=== PATIENT | female | born 1980 | race Caucasian/White ===

== ENCOUNTER → 2019-09-18 | Outpatient (CLI) | payer OTHER, SELFPAY ==
[2019-09-08 13:54] VITALS: BMI 25.9
[2019-09-18 10:41] LABS: Absolute Lymphocyte Count 1.88 X10^3/uL (0.83-4.51); Basophil# 0.04 X10^3/uL; Basophil% 0.7 % (0-1); Eosinophils% 1.8 % (0-5); Hematocrit 42.5 % (37-47); Hemoglobin 14.1 g/dL (12.0-15.0); Lymphocyte # 1.88 X10^3/ul (4.0); Lymphocyte % 34.4 % (19-41); Mean Corp Hgb Conc 33.2 g/dL (32-36); Mean Corpuscular Hgb 27.6 pg (27.0-32.0); Mean Corpuscular Volume 83.3 fL (81-99); Mean Platelet Vol. 11.1 fl (6.2-12.0); Monocyte# 0.39 X10^3/uL; Monocyte% 7.1 % (0-10); NRBC Flagged by Analyzer 0 % (0-5); Neutrophil # 3.03 X10^3/uL (2.7-7.7); Neutrophil % 55.6 % (47-70); Platelet Count 250 K/mm3 (150-450); RBC Distribution Width CV 11.9 % (11.6-14.6); RBC Distribution Width SD 36.3 fl (35.1-43.9); White Blood Count 5.5 K/mm3 (4.4-11.0)
[2019-09-18 11:11] LABS: ALB/GLOB Ratio 1.2 RATIO (0.9-2.4); AST(SGOT) 11 U/L (15-37); Alanine Aminotransfer ALT/SGPT 16 U/L (13-56); Alkaline Phosphatase 53 U/L (45-117); Anion Gap 9 (5-15); BUN 12 mg/dL (7-18); BUN/Creat Ratio 16.1 RATIO (10-20); Calcium,Total 8.9 mg/dL (8.5-10.1); Chloride 104 mmol/L (98-107); Cholesterol 185 mg/dL (200); Creatinine, Serum 0.75 mg/dL (0.55-1.02); EST Glomerular Filtration Rate 91 mL/min (>60); Est Glom Filt Rate - Afr Amer 110 mL/min (>60); Globulin 3.4 g/dL (2.2-4.2); Glucose 80 mg/dL (74-106); High Density Lipoprotein 53 mg/dL; Potassium 3.8 mmol/L (3.5-5.1); Protein, Total 7.4 g/dL (6.4-8.2); Sodium Level 139 mmol/L (136-145); Thyroid Stim Hormone (TSH) 1.68 uIU/mL (0.358-3.74); Triglycerides 76 mg/dL; Very Low Density Lipoprotein 15 mg/dL (5-40)
== END | disposition home or self-care (01) ==
PROVIDERS: Family Provider Family Medicine; PCP Family Medicine; Referring Provider Obstetrics & Gynecology; Visit Provider Obstetrics & Gynecology
DX: Z13.29 Encounter for screening for other suspected endocrine disorder (principal); Z13.220 Encounter for screening for lipoid disorders
CPT/HCPCS: 80053; 80061; 84443; 85025

== ENCOUNTER → 2019-10-01 | Outpatient (CLI) | payer OTHER, SELFPAY ==
[2019-09-08 13:54] VITALS: BMI 25.9
--- NOTE | 2019-10-01 10:37 | BI_ITS ---
MAMMOGRAPHY - BILATERAL SCREENING REASON FOR EXAM: Female, 39 years old. Routine annual screening examination. PERTINENT HISTORY: Non-contributory. TECHNIQUE: Digital bilateral breast rita (3D mammographic acquisition) in the CC and MLO projections. 2-D mediolateral oblique (MLO) and craniocaudad (CC) views of both breasts were obtained. CAD: Full Field Digital Mammography with Computer Added Detection was performed. COMPARISON: None. Baseline examination. FINDINGS: Breast Composition: The breasts are extremely dense, which lowers the sensitivity of mammography. There are no dominant masses or suspicious calcifications. No other significant abnormalities are identified. BI/SCREEN MAMM (CAD) W/RITA BILAT IMPRESSION: Negative screening mammogram. Yearly followup mammogram recommended. (A) ASSESSMENT CATEGORY: BIRADS Category 1: Negative. A letter regarding these results will be sent to the patient by the facility within 30 days. Approximately 10% of breast cancers are not detected by mammography. A normal mammogram should not delay biopsy of a clinically suspicious abnormality. [id number] Electronically Signed: Eduin Solo, at 12:48 EST , Service support ,
== END | disposition home or self-care (01) ==
LOC: OPBI 10:36
PROVIDERS: Family Provider Family Medicine; PCP Family Medicine; Referring Provider Obstetrics & Gynecology; Visit Provider Obstetrics & Gynecology
DX: Z12.31 Encounter for screening mammogram for malignant neoplasm of breast (principal)
CPT/HCPCS: 77063; 77067

== ENCOUNTER → 2020-09-15 | Outpatient (CLI) | payer OTHER, SELFPAY ==
[2020-09-15 09:44] VITALS: BMI 27.0
[2020-09-21 14:04] LABS: HPV APTIMA, High Risk Negative (Negative)
== END | disposition home or self-care (01) ==
LOC: LABSPEC 16:18
PROVIDERS: PCP Family Medicine; Referring Provider Obstetrics & Gynecology; Visit Provider Obstetrics & Gynecology
DX: Z12.4 Encounter for screening for malignant neoplasm of cervix (principal)
CPT/HCPCS: 87624; 88175; G0145

== ENCOUNTER → 2020-10-10 12:38 | Outpatient (CLI) | payer OTHER, SELFPAY ==
[2020-09-15 09:44] VITALS: BMI 27.0
--- NOTE | 2020-10-10 12:51 | BI_ITS ---
MAMMOGRAPHY - BILATERAL SCREENING REASON FOR EXAM: Female, 40 years old. Routine annual screening examination. PERTINENT HISTORY: Screening TECHNIQUE: Digital bilateral breast rita (3D mammographic acquisition) in the CC and MLO projections. 2-D mediolateral oblique (MLO) and craniocaudad (CC) views of both breasts were obtained. CAD: Full Field Digital Mammography with Computer Added Detection was performed. COMPARISON: 10/01/2019 FINDINGS: Breast Composition: Dense There are no dominant masses or suspicious calcifications. No other significant abnormalities are identified. BI/SCREEN MAMM (CAD) W/RITA BILAT IMPRESSION: Stable bilateral screening mammogram. Yearly follow-up mammogram recommended. (A) ASSESSMENT CATEGORY: BIRADS Category 1: Negative. A letter regarding these results will be sent to the patient by the facility within 30 days. Approximately 10% of breast cancers are not detected by mammography. A normal mammogram should not delay biopsy of a clinically suspicious abnormality. [id number] Electronically Signed: Harshal Josue, at 17:13 EST Tel , Service support ,
== END ==
PROVIDERS: PCP Family Medicine; Referring Provider Obstetrics & Gynecology; Visit Provider Obstetrics & Gynecology
DX: Z12.31 Encounter for screening mammogram for malignant neoplasm of breast (principal)
CPT/HCPCS: 77063; 77067

== ENCOUNTER 2021-11-28 09:08 | Outpatient (CLI) | payer OTHER, SELFPAY ==
--- NOTE | 2021-11-28 09:12 | BI_ITS ---
MAMMOGRAPHY - BILATERAL SCREENING REASON FOR EXAM: Female, 41 years old. Routine annual screening examination. PERTINENT HISTORY: Non-contributory. TECHNIQUE: Digital bilateral breast rita (3D mammographic acquisition) in the CC and MLO projections. 2-D mediolateral oblique (MLO) and craniocaudad (CC) views of both breasts were obtained. CAD: Full Field Digital Mammography with Computer Added Detection was performed. COMPARISON: Comparison is made with prior study dated 10/10/2020. FINDINGS: Breast Composition: The breasts are extremely dense, which lowers the sensitivity of mammography. There are no dominant masses or suspicious calcifications. Stable small benign-appearing bilateral axillary lymph nodes. No other significant abnormalities are identified. There has been no significant change since the prior study. BI/SCRN MAMM (CAD)W/RITA BILAT IMPRESSION: Stable bilateral screening mammogram. Yearly follow-up mammogram recommended. (A) ASSESSMENT CATEGORY: BIRADS Category 2: Benign. A letter regarding these results will be sent to the patient by the facility within 30 days. Approximately 10% of breast cancers are not detected by mammography. A normal mammogram should not delay biopsy of a clinically suspicious abnormality. [id number] Electronically Signed: Eduin Solo MD at 10:10 EST , Service support ,
[2021-11-28 10:42] LABS: Vitamin D,25 Hydroxy 32.8 ng/mL
[2021-11-28 10:49] LABS: Cholesterol 206 mg/dL (200); Glucose 94 mg/dL (74-106); High Density Lipoprotein 60 mg/dL; Thyroid Stim Hormone (TSH) 2.48 uIU/mL (0.358-3.74); Triglycerides 84 mg/dL; Very Low Density Lipoprotein 17 mg/dL (5-40)
== END 2021-11-28 23:59 | disposition short-term general hospital (02) ==
PROVIDERS: PCP Family Medicine; Referring Provider Obstetrics & Gynecology; Visit Provider Obstetrics & Gynecology
DX: Z12.31 Encounter for screening mammogram for malignant neoplasm of breast (principal); Z13.1 Encounter for screening for diabetes mellitus; Z13.220 Encounter for screening for lipoid disorders; Z13.29 Encounter for screening for other suspected endocrine disorder; Z13.21 Encounter for screening for nutritional disorder
CPT/HCPCS: 36415; 77063; 77067; 80061; 82306; 82947; 84443

== ENCOUNTER → 2022-09-13 | Outpatient (CLI) | payer OTHER, SELFPAY ==
[2022-09-13 10:19] LABS: Erythrocyte Sedimentation Rate 9 mm/hr (0-30)
[2022-09-13 10:26] LABS: Absolute Lymphocyte Count 1.85 X10^3/uL (0.83-4.51); Absolute Neutrophil Count 4.3 X10^3/uL (2.0-7.7); Basophil# 0.06 X10^3/uL; Basophil% 0.9 % (0-1); Eosinophils% 1.5 % (0-5); Lymphocyte # 1.85 X10^3/ul (0.83-4.51); Lymphocyte % 27.3 % (19-41); Mean Corp Hgb Conc 34.1 g/dL (32-36); Mean Corpuscular Hgb 27.9 pg (27.0-32.0); Mean Corpuscular Volume 81.7 fL (81-99); Mean Platelet Vol. 11.1 fl (6.2-12.0); Monocyte# 0.45 X10^3/uL; Monocyte% 6.6 % (0-10); NRBC Flagged by Analyzer 0 % (0-5); Neutrophil # 4.29 X10^3/uL (2.7-7.7); Neutrophil % 63.4 % (47-70); Platelet Count 278 K/mm3 (150-450); RBC Distribution Width CV 12.3 % (11.6-14.6); RBC Distribution Width SD 36.2 fl (35.1-43.9); Red Blood Count 5.02 M/mm3 (4.2-5.4); White Blood Count 6.8 K/mm3 (4.4-11.0)
[2022-09-13 10:47] LABS: Fibrinogen 357 mg/dl (203-444)
[2022-09-13 11:28] LABS: Vitamin D,25 Hydroxy 33.2 ng/mL
[2022-09-13 11:34] LABS: Hemoglobin A1c 5.2 % (3.8-5.6)
[2022-09-13 11:48] LABS: Homocysteine 6.9 umol/L (3.2-10.7)
[2022-09-13 12:00] LABS: ALB/GLOB Ratio 1.1 RATIO (0.9-2.4); AST(SGOT) 10 U/L (15-37); Alanine Aminotransfer ALT/SGPT 18 U/L (13-56); Albumin, Serum 4.1 g/dL (3.2-5.0); Alkaline Phosphatase 53 U/L (45-117); Anion Gap 5 (5-15); BUN 13 mg/dL (7-18); CRP, High Sensitivity Cardiac 1.38 mg/L; Calcium,Total 9.5 mg/dL (8.5-10.1); Chloride 106 mmol/L (98-107); Cholesterol 221 mg/dL (200); Creatinine, Serum 0.86 mg/dL (0.55-1.02); EST Glomerular Filtration Rate 76 mL/min (>60); Est Glom Filt Rate - Afr Amer 92 mL/min (>60); Ferritin 48 ng/mL (8-252); Free T3 2.6 pg/mL (2.18-3.98); GGTP 13 U/L (5-55); Globulin 3.6 g/dL (2.2-4.2); Glucose 85 mg/dL (74-106); High Density Lipoprotein 61 mg/dL; Iron 105 ug/dL (50-170); Iron Binding Capacity,Total 372 ug/dL (250-450); LDH 148 U/L (84-246); PERCENT IRON SATURATION 28.2 % (15.0-55.0); Potassium 3.6 mmol/L (3.5-5.1); Protein, Total 7.7 g/dL (6.4-8.2); Sodium Level 136 mmol/L (136-145); T3 Uptake 32 % (30-39); T4 Free Direct 0.93 ng/dL (0.76-1.46); T4 Total, Thyroxin 10.3 ug/dL (4.8-13.9); T7 / Free Thyroxin Index 3.3 (1.4-4.5); Thyroid Stim Hormone (TSH) 2.88 uIU/mL (0.358-3.74); Triglycerides 107 mg/dL; Uric Acid 2.7 mg/dL (2.6-6.0); Very Low Density Lipoprotein 21 mg/dL (5-40)
[2022-09-21 04:07] LABS: Alkaline Phosphatase, Serum 58 IU/L (44-121); Bone Fraction 47 % (14-68); Ceruloplasmin 32.7 mg/dL (19.0-39.0); Insulin Like Growth Factor 173 ng/mL (74-239); Intestinal Fraction 0 % (0-18); LDH 150 IU/L (119-226); LDH Fraction 1 19 % (17-32); LDH Fraction 2 37 % (25-40); LDH Fraction 3 26 % (17-27); LDH Fraction 4 10 % (5-13); LDH Fraction 5 8 % (4-20); Liver Fraction 53 % (18-85); Thyroid Peroxidase AB 9 IU/mL (0-34)
[2022-09-22 21:03] LABS: Copper, Serum or Plasma 144 ug/dL (80-158); Thyroglobulin Antibody < 1.0 IU/mL (0.0-0.9)
== END | disposition home or self-care (01) ==
DX: E61.9 Deficiency of nutrient element, unspecified (principal); Z13.9 Encounter for screening, unspecified; Z13.220 Encounter for screening for lipoid disorders
CPT/HCPCS: 36415; 80053; 80061; 82306; 82390; 82525; 82533; 82728; 82977; 83036; 83090; 83525; 83540; 83550; 83615; 83625; 84075; 84080; 84305; 84436; 84439; 84443; 84479; 84481; 84482; 84550; 85025; 85384; 85652; 86141; 86376; 86800

== ENCOUNTER → 2022-12-07 | Outpatient (CLI) | payer OTHER, SELFPAY ==
--- NOTE | 2022-12-07 08:31 | BI_ITS ---
MAMMOGRAPHY - BILATERAL SCREENING REASON FOR EXAM: Female, 42 years old. Routine annual screening examination. PERTINENT HISTORY: Non-contributory. TECHNIQUE: Digital bilateral breast rita (3D mammographic acquisition) in the CC and MLO projections. 2-D mediolateral oblique (MLO) and craniocaudad (CC) views of both breasts were obtained. CAD: Full Field Digital Mammography with Computer Added Detection was performed. COMPARISON: Comparison is made with prior study dated 11/28/2021 and 10/10/2020. FINDINGS: Breast Composition: The breasts are extremely dense, which lowers the sensitivity of mammography. There are no dominant masses or suspicious calcifications. Stable small benign-appearing bilateral axillary lymph nodes. No other significant abnormalities are identified. There has been no significant change since the prior study. BI/SCRN MAMM (CAD)W/RITA BILAT IMPRESSION: Stable bilateral screening mammogram. Yearly follow-up mammogram recommended. (A) ASSESSMENT CATEGORY: BIRADS Category 2: Benign. A letter regarding these results will be sent to the patient by the facility within 30 days. Approximately 10% of breast cancers are not detected by mammography. A normal mammogram should not delay biopsy of a clinically suspicious abnormality. [id number] Electronically Signed: Eduin Solo MD at 9:11 EST ,
== END | disposition home or self-care (01) ==
LOC: OPBI 08:30
PROVIDERS: Visit Provider Obstetrics & Gynecology
DX: Z12.31 Encounter for screening mammogram for malignant neoplasm of breast (principal)
CPT/HCPCS: 77063; 77067

== ENCOUNTER → 2023-01-03 | Outpatient (CLI) | payer OTHER, SELFPAY ==
[2023-01-03 10:21] LABS: Fibrinogen 271 mg/dl (203-444)
[2023-01-03 10:33] LABS: Erythrocyte Sedimentation Rate 5 mm/hr (0-30)
[2023-01-03 10:35] LABS: Absolute Lymphocyte Count 1.69 X10^3/uL (0.83-4.51); Absolute Neutrophil Count 3.2 X10^3/uL (2.0-7.7); Basophil# 0.04 X10^3/uL; Basophil% 0.7 % (0-1); Eosinophil# 0.15 X10^3/uL; Eosinophils% 2.8 % (0-5); Hematocrit 42.1 % (37-47); Hemoglobin 13.6 g/dL (12.0-15.0); Lymphocyte # 1.69 X10^3/ul (0.83-4.51); Lymphocyte % 31.5 % (19-41); Mean Corp Hgb Conc 32.3 g/dL (32-36); Mean Corpuscular Hgb 26.5 pg (27.0-32.0); Mean Corpuscular Volume 81.9 fL (81-99); Mean Platelet Vol. 10.6 fl (6.2-12.0); Monocyte% 5.6 % (0-10); NRBC Flagged by Analyzer 0 % (0-5); Neutrophil # 3.15 X10^3/uL (2.7-7.7); Neutrophil % 58.8 % (47-70); Platelet Count 302 K/mm3 (150-450); RBC Distribution Width CV 12.7 % (11.6-14.6); RBC Distribution Width SD 37.9 fl (35.1-43.9); Red Blood Count 5.14 M/mm3 (4.2-5.4); White Blood Count 5.4 K/mm3 (4.4-11.0)
[2023-01-03 10:42] LABS: AST(SGOT) 12 U/L (15-37); Alanine Aminotransfer ALT/SGPT 21 U/L (13-56); Albumin, Serum 3.8 g/dL (3.2-5.0); Alkaline Phosphatase 60 U/L (45-117); Anion Gap 7 (5-15); BUN 20 mg/dL (7-18); BUN/Creat Ratio 23.2 RATIO (10-20); CRP, High Sensitivity Cardiac 1.22 mg/L; Calcium,Total 9.4 mg/dL (8.5-10.1); Chloride 104 mmol/L (98-107); Creatinine, Serum 0.86 mg/dL (0.55-1.02); EST Glomerular Filtration Rate 76 mL/min (>60); Est Glom Filt Rate - Afr Amer 92 mL/min (>60); Free T3 2.7 pg/mL (2.18-3.98); Globulin 3.7 g/dL (2.2-4.2); Glucose 95 mg/dL (74-106); LDH 156 U/L (84-246); Potassium 3.9 mmol/L (3.5-5.1); Protein, Total 7.5 g/dL (6.4-8.2); Sodium Level 137 mmol/L (136-145); T3 Uptake 33 % (30-39); T4 Free Direct 0.97 ng/dL (0.76-1.46); T4 Total, Thyroxin 8.7 ug/dL (4.8-13.9); T7 / Free Thyroxin Index 2.9 (1.4-4.5); Thyroid Stim Hormone (TSH) 2.04 uIU/mL (0.358-3.74)
[2023-01-03 10:50] LABS: Vitamin D,25 Hydroxy 63.6 ng/mL
[2023-01-12 20:07] LABS: Alkaline Phosphatase, Serum 61 IU/L (44-121); Bone Fraction 54 % (14-68); Insulin Like Growth Factor 137 ng/mL (74-239); Intestinal Fraction 6 % (0-18); Liver Fraction 41 % (18-85); Thyroid Peroxidase AB < 9 IU/mL (0-34)
[2023-01-13 09:17] LABS: Copper, Serum or Plasma 120 ug/dL (80-158); T3 Reverse 16.8 ng/dL (9.2-24.1); Thyroglobulin Antibody < 1.0 IU/mL (0.0-0.9)
== END | disposition home or self-care (01) ==
LOC: MTLAB 08:30
DX: E03.9 Hypothyroidism, unspecified (principal); E61.9 Deficiency of nutrient element, unspecified; E55.9 Vitamin D deficiency, unspecified; R76.0 Raised antibody titer; R63.5 Abnormal weight gain
CPT/HCPCS: 36415; 80053; 82306; 82390; 82525; 83615; 84075; 84080; 84305; 84436; 84439; 84443; 84479; 84481; 84482; 85025; 85384; 85652; 86141; 86376; 86800

== ENCOUNTER → 2023-04-25 | Outpatient (CLI) | payer OTHER, SELFPAY ==
[2023-04-25 10:20] LABS: Absolute Lymphocyte Count 1.83 X10^3/uL (0.83-4.51); Absolute Neutrophil Count 3.5 X10^3/uL (2.0-7.7); Basophil# 0.03 X10^3/uL; Basophil% 0.5 % (0-1); Eosinophil# 0.13 X10^3/uL; Eosinophils% 2.1 % (0-5); Hematocrit 41.4 % (37-47); Hemoglobin 13.6 g/dL (12.0-15.0); Lymphocyte # 1.83 X10^3/ul (0.83-4.51); Lymphocyte % 30.2 % (19-41); Mean Corp Hgb Conc 32.9 g/dL (32-36); Mean Corpuscular Hgb 27.1 pg (27.0-32.0); Mean Corpuscular Volume 82.5 fL (81-99); Mean Platelet Vol. 10.8 fl (6.2-12.0); Monocyte# 0.52 X10^3/uL; Monocyte% 8.6 % (0-10); NRBC Flagged by Analyzer 0 % (0-5); Neutrophil # 3.52 X10^3/uL (2.7-7.7); Neutrophil % 58.3 % (47-70); Platelet Count 276 K/mm3 (150-450); RBC Distribution Width CV 12.4 % (11.6-14.6); RBC Distribution Width SD 37.1 fl (35.1-43.9); Red Blood Count 5.02 M/mm3 (4.2-5.4); White Blood Count 6.1 K/mm3 (4.4-11.0)
[2023-04-25 10:27] LABS: Erythrocyte Sedimentation Rate 7 mm/hr (0-30)
[2023-04-25 10:33] LABS: Hemoglobin A1c 5.1 % (3.8-5.6)
[2023-04-25 10:37] LABS: Homocysteine 3.8 umol/L (3.2-10.7)
[2023-04-25 11:05] LABS: ALB/GLOB Ratio 1.1 RATIO (0.9-2.4); AST(SGOT) 15 U/L (15-37); Alanine Aminotransfer ALT/SGPT 22 U/L (13-56); Albumin, Serum 3.7 g/dL (3.2-5.0); Alkaline Phosphatase 57 U/L (45-117); Anion Gap 3 (5-15); BUN 13 mg/dL (7-18); BUN/Creat Ratio 16.8 RATIO (10-20); CRP, High Sensitivity Cardiac 1.52 mg/L; Calcium,Total 8.9 mg/dL (8.5-10.1); Chloride 110 mmol/L (98-107); Creatinine, Serum 0.77 mg/dL (0.55-1.02); EST Glomerular Filtration Rate 86 mL/min (>60); Est Glom Filt Rate - Afr Amer 104 mL/min (>60); Ferritin 18 ng/mL (8-252); Free T3 2.4 pg/mL (2.18-3.98); GGTP 10 U/L (5-55); Globulin 3.4 g/dL (2.2-4.2); Glucose 92 mg/dL (74-106); LDH 143 U/L (84-246); Potassium 3.8 mmol/L (3.5-5.1); Protein, Total 7.1 g/dL (6.4-8.2); Sodium Level 136 mmol/L (136-145); T3 Uptake 33 % (30-39); T4 Free Direct 0.92 ng/dL (0.76-1.46); T4 Total, Thyroxin 8.4 ug/dL (4.8-13.9); T7 / Free Thyroxin Index 2.8 (1.4-4.5); Thyroid Stim Hormone (TSH) 3.33 uIU/mL (0.358-3.74); Uric Acid 3.3 mg/dL (2.6-6.0)
[2023-04-25 11:35] LABS: Vitamin D,25 Hydroxy 92.9 ng/mL
[2023-04-29 19:07] LABS: Ceruloplasmin 28.7 mg/dL (19.0-39.0); Copper, Serum or Plasma 134 ug/dL (80-158); Insulin Like Growth Factor 140 ng/mL (74-239); Thyroglobulin Antibody < 1.0 IU/mL (0.0-0.9); Thyroid Peroxidase AB < 9 IU/mL (0-34)
== END | disposition home or self-care (01) ==
LOC: MTLAB 08:16
DX: Z13.29 Encounter for screening for other suspected endocrine disorder (principal); E61.9 Deficiency of nutrient element, unspecified; Z13.220 Encounter for screening for lipoid disorders; E03.9 Hypothyroidism, unspecified; E55.9 Vitamin D deficiency, unspecified; R76.0 Raised antibody titer; R63.5 Abnormal weight gain
CPT/HCPCS: 36415; 80053; 82306; 82390; 82525; 82728; 82977; 83036; 83090; 83615; 84305; 84436; 84439; 84443; 84479; 84481; 84482; 84550; 85025; 85652; 86141; 86376; 86800

== ENCOUNTER → 2023-07-10 | Outpatient (CLI) | payer OTHER, SELFPAY ==
--- NOTE | 2023-07-10 10:23 | US_ITS ---
INDICATION: left pelvic pain EXAMINATION: Ultrasound US Pelvis Non OB Complete With Transvaginal Imaging TECHNIQUE: Transabdominal and transvaginal pelvic ultrasound was performed. Grayscale, spectral waveform, and color flow Doppler evaluation of the adnexa. COMPARISON: None. FINDINGS: UTERUS: Anteverted. The uterus measures 12 x 6 x 5.7 cm. There is no uterine mass. The endometrial stripe measures 18 mm in AP diameter which is within normal limits. RIGHT OVARY: Measures 2.5 x 2.5 x 2.1 cm. Non-enlarged, normal echogenicity. There is normal arterial inflow and venous outflow present in the right ovary. LEFT OVARY: Measures 1.4 x 1.6 x 1 cm. Non-enlarged, normal echogenicity. There is normal arterial inflow and venous outflow present in the left ovary. FREE FLUID: None. US/Pelvic (Non ) IMPRESSION: Normal pelvic ultrasound. Electronically Signed: Pierce Pierce MD at 16:29 EDT ,
== END | disposition home or self-care (01) ==
LOC: US 10:22
PROVIDERS: PCP Internal Medicine; Referring Provider Nurse Practitioner Women's Health; Visit Provider Nurse Practitioner Women's Health
DX: R10.2 Pelvic and perineal pain (principal)
CPT/HCPCS: 76830; 76856; 93976

== ENCOUNTER → 2023-07-19 | Outpatient (CLI) | payer OTHER, SELFPAY ==
[2023-07-19 10:06] LABS: Absolute Neutrophil Count 3.7 X10^3/uL (2.0-7.7); Basophil# 0.06 X10^3/uL; Eosinophil# 0.14 X10^3/uL; Eosinophils% 2.3 % (0-5); Hematocrit 43.5 % (37-47); Hemoglobin 14.2 g/dL (12.0-15.0); Lymphocyte % 28.2 % (19-41); Mean Corp Hgb Conc 32.6 g/dL (32-36); Mean Corpuscular Hgb 27.2 pg (27.0-32.0); Mean Corpuscular Volume 83.2 fL (81-99); Mean Platelet Vol. 10.4 fl (6.2-12.0); Monocyte% 6.6 % (0-10); NRBC Flagged by Analyzer 0 % (0-5); Neutrophil # 3.71 X10^3/uL (2.7-7.7); Neutrophil % 61.7 % (47-70); Platelet Count 316 K/mm3 (150-450); RBC Distribution Width CV 12.5 % (11.6-14.6); Red Blood Count 5.23 M/mm3 (4.2-5.4)
[2023-07-19 10:57] LABS: Homocysteine 5.7 umol/L (3.2-10.7)
[2023-07-19 11:09] LABS: ALB/GLOB Ratio 1.1 RATIO (0.9-2.4); AST(SGOT) 18 U/L (15-37); Alanine Aminotransfer ALT/SGPT 23 U/L (13-56); Albumin, Serum 3.9 g/dL (3.2-5.0); Alkaline Phosphatase 59 U/L (45-117); Anion Gap 6 (5-15); BUN 11 mg/dL (7-18); BUN/Creat Ratio 13.7 RATIO (10-20); CRP < 2.90 mg/L (0.0-3.0); Calcium,Total 9.1 mg/dL (8.5-10.1); Chloride 108 mmol/L (98-107); Cholesterol 218 mg/dL (200); EST Glomerular Filtration Rate 82 mL/min (>60); Est Glom Filt Rate - Afr Amer 99 mL/min (>60); Ferritin 28 ng/mL (8-252); Free T3 2.8 pg/mL (2.18-3.98); GGTP 10 U/L (5-55); Globulin 3.7 g/dL (2.2-4.2); Glucose 96 mg/dL (74-106); High Density Lipoprotein 55 mg/dL; Protein, Total 7.6 g/dL (6.4-8.2); Sodium Level 138 mmol/L (136-145); T4 Free Direct 1.02 ng/dL (0.76-1.46); T4 Total, Thyroxin 9.6 ug/dL (4.8-13.9); Thyroid Stim Hormone (TSH) 3.66 uIU/mL (0.358-3.74); Triglycerides 111 mg/dL; Very Low Density Lipoprotein 22 mg/dL (5-40)
[2023-07-29 16:09] LABS: Ceruloplasmin 31.9 mg/dL (19.0-39.0); Copper, Serum or Plasma 144 ug/dL (80-158); Insulin Like Growth Factor 134 ng/mL (74-239)
== END | disposition home or self-care (01) ==
LOC: MTLAB 08:18
PROVIDERS: PCP Internal Medicine
DX: E56.9 Vitamin deficiency, unspecified (principal); E61.9 Deficiency of nutrient element, unspecified; E03.9 Hypothyroidism, unspecified; R79.0 Abnormal level of blood mineral; R79.82 Elevated C-reactive protein (CRP)
CPT/HCPCS: 36415; 80053; 80061; 82390; 82525; 82728; 82977; 83090; 84305; 84436; 84439; 84443; 84481; 85025; 86140

== ENCOUNTER → 2023-10-30 | Outpatient (CLI) | payer OTHER, SELFPAY ==
[2023-10-30 10:22] LABS: Absolute Lymphocyte Count 2.02 X10^3/uL (0.83-4.51); Absolute Neutrophil Count 4.4 X10^3/uL (2.0-7.7); Basophil# 0.05 X10^3/uL; Basophil% 0.7 % (0-1); Eosinophil# 0.17 X10^3/uL; Eosinophils% 2.4 % (0-5); Hematocrit 41.9 % (37-47); Hemoglobin 13.6 g/dL (12.0-15.0); Lymphocyte # 2.02 X10^3/ul (0.83-4.51); Lymphocyte % 28.3 % (19-41); Mean Corp Hgb Conc 32.5 g/dL (32-36); Mean Corpuscular Hgb 26.7 pg (27.0-32.0); Mean Corpuscular Volume 82.2 fL (81-99); Mean Platelet Vol. 10.7 fl (6.2-12.0); Monocyte# 0.45 X10^3/uL; Monocyte% 6.3 % (0-10); NRBC Flagged by Analyzer 0 % (0-5); Neutrophil # 4.44 X10^3/uL (2.7-7.7); Platelet Count 288 K/mm3 (150-450); RBC Distribution Width CV 12.5 % (11.6-14.6); RBC Distribution Width SD 37.5 fl (35.1-43.9); White Blood Count 7.2 K/mm3 (4.4-11.0)
[2023-10-30 10:29] LABS: Erythrocyte Sedimentation Rate 14 mm/hr (0-30)
[2023-10-30 10:54] LABS: Vitamin D,25 Hydroxy 61.7 ng/mL
[2023-10-30 11:35] LABS: Homocysteine 4.9 umol/L (3.2-10.7)
[2023-10-30 12:07] LABS: AST(SGOT) 15 U/L (15-37); Alanine Aminotransfer ALT/SGPT 27 U/L (13-56); Albumin, Serum 3.8 g/dL (3.2-5.0); Alkaline Phosphatase 67 U/L (45-117); Anion Gap 8 (5-15); BUN 11 mg/dL (7-18); CRP, High Sensitivity Cardiac 1.46 mg/L; Chloride 108 mmol/L (98-107); Creatinine, Serum 0.84 mg/dL (0.55-1.02); EST Glomerular Filtration Rate 78 mL/min (>60); Est Glom Filt Rate - Afr Amer 94 mL/min (>60); Ferritin 29 ng/mL (8-252); Free T3 2.7 pg/mL (2.18-3.98); Globulin 3.7 g/dL (2.2-4.2); Glucose 88 mg/dL (74-106); Iron 142 ug/dL (50-170); Iron Binding Capacity,Total 367 ug/dL (250-450); LDH 165 U/L (84-246); PERCENT IRON SATURATION 38.7 % (15.0-55.0); Potassium 3.8 mmol/L (3.5-5.1); Protein, Total 7.5 g/dL (6.4-8.2); Sodium Level 137 mmol/L (136-145); T4 Free Direct 0.99 ng/dL (0.76-1.46); T4 Total, Thyroxin 8.9 ug/dL (4.8-13.9); Thyroid Stim Hormone (TSH) 3.06 uIU/mL (0.358-3.74); Uric Acid 2.8 mg/dL (2.6-6.0)
[2023-10-30 14:51] LABS: Hemoglobin A1c 5.1 % (3.8-5.6)
[2023-11-07 03:07] LABS: Ceruloplasmin 32.9 mg/dL (19.0-39.0); Copper, Serum or Plasma 142 ug/dL (80-158)
== END | disposition home or self-care (01) ==
LOC: MTLAB 08:39
PROVIDERS: PCP Internal Medicine
DX: L65.9 Nonscarring hair loss, unspecified (principal); E56.9 Vitamin deficiency, unspecified; E61.9 Deficiency of nutrient element, unspecified; E03.9 Hypothyroidism, unspecified; R79.82 Elevated C-reactive protein (CRP)
CPT/HCPCS: 36415; 80053; 82306; 82390; 82525; 82728; 83036; 83090; 83540; 83550; 83615; 84436; 84439; 84443; 84481; 84482; 84550; 85025; 85652; 86141

== ENCOUNTER → 2023-12-09 | Outpatient (CLI) | payer OTHER, SELFPAY ==
--- NOTE | 2023-12-09 10:55 | BI_ITS ---
MAMMOGRAPHY - BILATERAL SCREENING REASON FOR EXAM: Female, 43 years old. Routine annual screening examination. PERTINENT HISTORY: Non-contributory. TECHNIQUE: Digital bilateral breast rita (3D mammographic acquisition) in the CC and MLO projections. 2-D mediolateral oblique (MLO) and craniocaudad (CC) views of both breasts were obtained. CAD: Full Field Digital Mammography with Computer Added Detection was performed. COMPARISON: Comparison is made with prior study dated December 07, 2022 and November 28, 2021. FINDINGS: Breast Composition: The breasts are extremely dense, which lowers the sensitivity of mammography. There is a 1.6 cm x 1.8 cm well-defined nodule in the deep upper lateral aspect of the left breast. Correlation with ultrasound is recommended. No other significant abnormalities are identified. BI/SCRN MAMM (CAD)W/RITA BILAT IMPRESSION: 1.6 x 1.8 cm well-defined nodule in the deep upper lateral aspect the left breast. Correlation with ultrasound is recommended. ASSESSMENT CATEGORY: BIRADS Category 0: Incomplete. Need additional imaging evaluation. A letter regarding these results will be sent to the patient by the facility within 30 days. Approximately 10% of breast cancers are not detected by mammography. A normal mammogram should not delay biopsy of a clinically suspicious abnormality. [id number] Electronically Signed: Eduin Solo MD at 14:58 EST ,
--- OUTSIDE RECORDS SUMMARY | 2023-12-09 12:25 | XMS RPT_ITS | CCD ---
Author Name Unknown Address [id number] [place] [address] Organization [facility] Care Team Providers Care Cover Inspector Name Role Phone Francy Doherty Unavailable Unavailable Francy Doherty Unavailable Unavailable Conrad Cisneros MD Primary Care Provider Conrad Cisneros MD Primary Care Provider AMIE NORRIS Attending Unavailable CONRAD CISNEROS Primary Care Unavailable CONRAD CISNEROS Primary Care Unavailable CONRAD CISNEROS Attending Unavailable Allergies Allergy Classification Reported Allergen(s) Allergy Type Date of Onset Reaction(s) Facility (4 sources) terconazole; Translations: [TERCONAZOLE] Drug Allergy 06-10-2008 [facility] Work Phone: Medications Completed/Discontinued Medications Medication Drug Class(es) Dates Sig (Normalized) Sig (Original) amoxicillin 875 mg oral tablet (2 sources) Penicillin-class Antibacterial Start: 03-08-2010 End: 03-18-2010 AMOXICILLIN 875 MG TABS one tab twice daily for 10 days AMOXICILLIN [id number] Portia High CNP B COMPLEX VITAMINS (2 sources) Start: 08-22-2017 B COMPLEX VITAMINS CAPS B COMPLEX VITAMINS [id number] Adrienne Cardenas MD Cholecalciferol (2 sources) Vitamin D Start: 08-22-2017 GNP VITAMIN D3 EXTRA STRENGTH TABS CHOLECALCIFEROL TABS [id number] Adrienne Cardenas MD krill oil 1000 mg oral capsule (2 sources) Start: 08-22-2017 KRILL OIL 1000 MG CAPS KRILL OIL [id number] Adrienne Cardenas MD Magnesium glycinate (3 sources) Start: 08-14-2019 Magnesium Glycinate 120 mg (Pure Encapsulations) Take 6 capsules daily. 120 capsule 3 08/14/2019 Active Problems Active Problems Problem Classification Problem Date Documented Da te Episodic/Chronic Immunizations and screening for infectious disease (3 sources) Patient encounter status; Translations: [Encounter for screening for human immunodeficiency virus [HIV]] Episodic Other bone disease and musculoskeletal deformities (1 source) Bone pain; Translations: [Other specified disorders of bone, other site] 07-05-2023 Episodic Past or Other Problems Problem Classification Problem Date Documented Da te Episodic/Chronic Abdominal pain (4 sources) Left lower quadrant pain; Translations: [Left lower quadrant pain] Onset: 07-05-2023 07-05-2023 Episodic Other bone disease and musculoskeletal deformities (1 source) Other specified disorders of bone, other site; Translations: [Iliac crest bone pain] Onset: 07-05-2023 Episodic Other gastrointestinal disorders (5 sources) Altered bowel function; Translations: [Other specified symptoms and signs involving the digestive system and abdomen] Onset: 08-22-2017 08-22-2017 Episodic Other skin disorders (3 sources) Disorder of pigmentation; Translations: [Disorder of pigmentation, unspecified] Onset: 06-02-2008 06-02-2008 Episodic Other skin disorders (3 sources) Vitiligo; Translations: [Vitiligo] Onset: 08-16-2008 08-16-2008 Episodic Other upper respiratory infections (2 sources) Acute pharyngitis; Translations: [Acute pharyngitis, unspecified] Onset: 03-08-2010 Resolved: 04-07-2010 03-08-2010 Episodic Results Test Name Value Interpretation Reference Range Facil ity Vital Signs Date Time Vital Sign Value Performing Clinician Facility 03-12-2022 12:57-0400 Body height 154.9 cm Amie Norris BUSINESS ADMINISTRATION PROFESSOR.GROUP PROGRAM MANAGER Work Phone: [facility] 03-12-2022 12:57-0400 Body weight 67.59 kg Amie Norris BUSINESS ADMINISTRATION PROFESSOR.GROUP PROGRAM MANAGER Work Phone: [facility] 03-12-2022 12:57-0400 Diastolic blood pressure 72 mm[Hg] Amie Jr BUSINESS ADMINISTRATION PROFESSOR.GROUP PROGRAM MANAGER Work Phone: [facility] 03-12-2022 12:57-0400 Heart rate 72 /min Amie Duffs BUSINESS ADMINISTRATION PROFESSOR.GROUP PROGRAM MANAGER Work Phone: [facility] 03-12-2022 12:57-0400 Respiratory rate 16 /min Amie Duffs BUSINESS ADMINISTRATION PROFESSOR.GROUP PROGRAM MANAGER Work Phone: [facility] 03-12-2022 12:57-0400 Systolic blood pressure 120 mm[Hg] Amie Duffs BUSINESS ADMINISTRATION PROFESSOR.GROUP PROGRAM MANAGER Work Phone: [facility] 08-22-2017 13:26-0400 BMI (Body Mass Index) 24.94 kg/m2 [facility] Work Phone: 08-22-2017 13:26-0400 BP Diastolic 79 mm[Hg] [facility] Work Phone: 08-22-2017 13:26-0400 BP Systolic 148 mm[Hg] [facility] Work Phone: 08-22-2017 13:26-0400 Height 154.94 cm [facility] Work Phone: 08-22-2017 13:26-0400 Pulse (Heart Rate) 65 /min [facility] Work Phone: 08-22-2017 13:26-0400 Respiratory Rate 18 /min [facility] Work Phone: 08-22-2017 13:26-0400 Weight 59.88 kg [facility] Work Phone: 03-08-2010 10:33-0400 Body Temperature 98.3 [degF] [facility] Work Phone: Encounters Encounter Date Encounter Type Care Provider Facility Start: 11-19-2023 End: 11-19-2023 ambulatory [facility] Facility:[facility] Start: 07-10-2023 ambulatory Conrad meade MD Work Phone: Internal Medicine [facility] Start: 07-05-2023 End: 07-06-2023 ambulatory CONRAD CISNEROS Facility:[facility] Start: 07-05-2023 End: 07-05-2023 Office outpatient visit 15 minutes Conrad Cisneros MD Work Phone: Internal Medicine [place] Procedures Date Procedure Procedure Detail Performing Clinician Start: 03-12-2022 Adult depression scr eening assessment Amie Norris BUSINESS ADMINISTRATION PROFESSOR.GROUP PROGRAM MANAGER Work Phone: Start: 11-28-2021 Mammography Amie Gunnero ks BUSINESS ADMINISTRATION PROFESSOR.GROUP PROGRAM MANAGER Work Phone: Plan of Treatment Date Care Activity Detail Author Start: 07-19-2023 Influenza vaccination INFLUENZA (#1) [facility] Start: 03-12-2023 Adult depression scr eening assessment DEPRESSION SCREENING [facility] Start: 03-12-2023 COVID-19 VACCINE (1) COVID-19 VACCIN E (1) [facility] Immunizations Immunization Date Immunization Notes Care Provider Fa cililashay 12-13-2021 influenza virus vaccine, unspecified formulation Amie Norris BUSINESS ADMINISTRATION PROFESSOR.GROUP PROGRAM MANAGER Work Phone: [facility] Work Phone: 11-25-2012 influenza virus vaccine, live, attenuated, for intranasal use Amie Norris BUSINESS ADMINISTRATION PROFESSOR.GROUP PROGRAM MANAGER Work Phone: [facility] Work Phone: 08-18-2011 influenza virus vaccine, live, attenuated, for intranasal use Amie Norris BUSINESS ADMINISTRATION PROFESSOR.GROUP PROGRAM MANAGER Work Phone: [facility] Work Phone: 08-14-2010 influenza virus vaccine, unspecified formulation Amie Norris BUSINESS ADMINISTRATION PROFESSOR.GROUP PROGRAM MANAGER Work Phone: [facility] Work Phone: 09-20-2009 novel [id number], all formulations Amie Norris BUSINESS ADMINISTRATION PROFESSOR.GROUP PROGRAM MANAGER Work Phone: [facility] Work Phone: 08-13-2009 influenza virus vaccine, unspecified formulation Amie Norris BUSINESS ADMINISTRATION PROFESSOR.GROUP PROGRAM MANAGER Work Phone: [facility] 09-23-2008 influenza virus vaccine, unspecified formulation Amie Norris BUSINESS ADMINISTRATION PROFESSOR.GROUP PROGRAM MANAGER Work Phone: [facility] Work Phone: Payers Date Payer Category Payer Unknown ANA M LA PRE [employer] [id number] 2019-Present [phone] [address] [place] [address] PPO [id number] 2019 Unknown [facility] PRE [employer] SELF [employer]DED [id number] 2019-Present [phone] [address] [place] [address] PPO [id number] 2019 Unknown [id number] Social History Date Type Detail Facility Start: 04-26-2011 Tobacco smoking status LAIS Never smoked tobacco [facility] Work Phone: Start: 03-12-2022 Alcohol intake Current drinker of alcohol (finding) [facility] Start: 03-12-2022 End: 07-05-2023 Alcohol intake [facility] Start: 03-05-2022 History SDOH Alcohol Frequency 3 [facility] Start: 03-05-2022 History SDOH Alcohol Std Drinks 1 [facility] Start: 08-14-2019 History SDOH Alcohol Comment OCCASIONALLY [facility] Start: 03-05-2022 History SDOH Social Connections Phone 5 [facility] Start: 03-05-2022 History SDOH Social Connections Membership 2 [facility] Start: 1980 Sex Assigned At Not on file [facility] Start: 03-02-2022 End: 03-12-2022 Exposure to SARS-CoV-2 (event) Not sure [facility] Work Phone: Start: 04-26-2011 Tobacco use and exposure Smokeless tobacco non-user [facility] Work Phone: Start: 03-05-2022 End: 07-05-2023 Social connection and isolation panel [facility] Do you belong to any clubs or organizations such as faith groups, unions, fraternal or athletic groups, or school groups? No [facility] Are you now , , , , never or living with a partner? [facility] How often to you hav e a drink containing alcohol? 2-4 times a month [facility] How many standard dr inks containing alcohol do you have on a typical day? 1 or 2 [facility] How often do you hav e 6 or more drinks on 1 occasion? Never [facility] How hard is it for y ou to pay for the very basics like food, housing, medical care, and heating Not hard at all [facility] Do you feel stress - tense, restless, nervous, or anxious, or unable to sleep at night because your mind is troubled all the time - these days [OSQ] Not at all [facility] (I/We) worried wheth er (my/our) food would run out before (I/we) got money to buy more. Never true [facility] Clinical Notes 06-09-2012 to 11-19-2023 Conrad Cisneros MD - 07/05/2023 10:34 AM EDTPatient InstructionsTerri MATEO Norris.GROUP PROGRAM MANAGER - 03/12/2022 1:00 PM EDT Note Date & Type Note Facility 11-19-2023 Note HNO ID: [id number] Author: Amie Norris APRN.[facility] Service: ? Author Type: Nurse Specialist Type: Progress Notes Filed: 11/19/2023 9:50 AM Note Text: AMBULATORY TELEPHONE VISIT Fern Woodruff has consented to this telephone encounter. Persons Present: patient Chief Complaint/Reason: HPI: Reports 1 month of skinny poops, now resolved. Reports 5-7 years ago had previous occurrence. States no history of IBS. Notes spinach causing diarrhea. Notes mother had diarrhea. Notes history hemorrhoids, external. Heartburn: no Reflux:no Abdominal pain: occasional shooting pain on left side abdomen for two weeks for seconds, went to groin then passed without intervention, none yesterday or today. Notes typically feeling better after BM. Nausea: no Vomiting: no Diarrhea: intermittent only with spinach Constipation:no BRBPR: no Black tarry: no No mucus in stool. No fever. Notes colonoscopy 2017 Dr Cardenas at [facility] for similar complaint. She thinks possible diverticulitis at that time. Data Reviewed: EPIC chart, care everywhere Assessment/Plan: (R19.4) Change in bowel habits (primary encounter diagnosis) Reports what sounds like possible diverticulitis or other issue causing narrowing of colon resulting in skinny poops . Currently without abdominal pain and no skinny poops for the last 2 to 3 days. She reports similar occurrence in the past with colonoscopy with Dr. Drake [facility] 2016. Will obtain records re: this. Recommend follow up with colonoscopy for further evaluation. If abdominal pain / similar occurrence in the future would recommend office visit while occurring for further evaluation and treatment as indicated. - CONSULT TO GASTROENTEROLOGY - CONSULT TO GENERAL SURGERY Total Time Spent: 20 minutes Amie Norris APRN.[facility] 07-10-2023 Note Patient Outreach (IN [facility]) FERN WOODRUFF ([id number]) 1980 F Date Time Provider Department 07/10/23 CONRAD CISNEROS During your visit today, we recorded the following information about you: Allergies As of Date: 07/10/2023 Noted Allergy Reaction TERAZOL 3 (TERCONAZOLE) 06/10/2008 Comments: HEADACHES Date Reviewed: 07/05/2023 Reviewed by: Saira Hardy LPN - Fully Assessed Visit Diagnosis:Encounter for screening mammogram for breast cancer [Z12.31] Order(s):[facility] S[facility]EN[facility] [[id number]] Order #: [id number] FUTURE Prescriptions as of 07/15/2023 - multivitamin tablet Take 1 tablet by mouth once daily. - Magnesium Glycinate 120 mg (Pure Encapsulations) Take 6 capsules daily. - ProOmega 120 gels - Lemon ([employer]) Take 2 capsules by mouth daily with food. Problem List As Of Date 07/10/2023 Noted Resolved Benign neoplasm of skin of trunk, except scrotu*11/08/2006 11/02/2014 Benign neoplasm of skin of upper limb, includin*11/08/2006 11/02/2014 Other chronic dermatitis due to solar radiation*11/08/2006 11/02/2014 Benign neoplasm of skin of lower limb, includin*02/26/2007 11/02/2014 Neoplasm of uncertain behavior of skin [D48.5] 02/18/2008 11/02/2014 NEVUS////BENIGN ALONA SKIN FACE NEC [D23.30] 02/18/2008 11/02/2014 NEVI///BENIGN ALONA SCALP/SKIN NECK [D23.4] 02/18/2008 11/02/2014 SOLAR LENGINES///DYSCHROMIA OTHER [L81.9] 02/18/2008 11/02/2014 HYPOPIGMENTATION///DYSCHROMIA UNSPECIFIED [L81.*06/02/2008 Scar condition and fibrosis of skin [L90.5] 06/02/2008 11/02/2014 Backache, unspecified [M54.9] 06/14/2008 11/02/2014 Hyperemesis Gravidarum with Metabolic Disturban*07/21/2008 02/09/2010 Other and unspecified noninfectious gastroenter*07/21/2008 11/02/2014 VITILIGO [L80] 08/16/2008 Abdominal pain, left lower quadrant [R10.32] 06/09/2012 06/11/2013 [place] [N94.0] 06/09/2012 11/02/2014 Altered bowel function [R19.8] 08/22/2017 Encounter Status:Closed by EPIC, PRODUSER on 07/15/23 [facility] 07-05-2023 Note HNO ID: [id number] Author: Conrad Cisneros MD Service: ? Author Type: Physician Type: Progress Notes Filed: 07/05/2023 12:46 PM Note Text: This note was created using NoteWriter. Subjective Fern Woodruff is a 43 year old female. Patient presents with: Left Hip Pain: X 1.5 months SUBJECTIVE: Fern Woodruff is a 43 year old year old lady here today for up appointment for review of medical conditions: Left side pain. Since mid-May. Left sided pain that goes over iliac crest and down to LLQ and down into her anterior thigh. Aleve does help but area stays tender. Does a lot of stretching and not able to do butterfly stretch without causing pain. Pain comes and goes. Does not happen when sitting or laying. Not there when had period. Saw [facility] [facility]--getting US of ovaries. PAST MEDICAL HISTORY Diagnosis Date Abnormal glandular Papanicolaou smear of cervix Abn. Pap smear (cervix) Migraine, unspecified, with intractable migraine, so stated, without mention of status migrainosus Migraine Tran 06/09/2012 Vitiligo Current Outpatient Medications Medication Sig multivitamin tablet Take 1 tablet by mouth once daily. Magnesium Glycinate 120 mg (Pure Encapsulations) Take 6 capsules daily. (Patient taking differently: Take 4 capsules daily. ) ProOmega 120 gels - Lemon ([employer]) Take 2 capsules by mouth daily with food. No current facility-administered medications for this visit. D Review of Systems Constitutional: Negative for chills, fever and unexpected weight change. Gastrointestinal: Positive for abdominal pain (LLQ associated with iliac crest pain and tenderness). Negative for constipation, diarrhea and rectal pain. Genitourinary: Negative for dysuria and frequency. Objective BP (P) 134/72 (BP Site: Left Arm, BP Position: Sitting, BP Cuff Size: Regular Adult) Pulse (P) 72 Wt (P) 70.8 kg (156 lb) LMP 09/10/2019 BMI (P) 29.48 kg/m? Physical Exam Abdominal: General: Abdomen is flat. There is no distension. Palpations: Abdomen is soft. There is no mass. Tenderness: There is abdominal tenderness (LLQ, mild). There is no guarding or rebound. Hernia: No hernia is present. Musculoskeletal: Legs: Assessment and Plan Encounter Diagnosis ICD-10-CM 1. LLQ abdominal pain R10.32 2. Iliac crest bone pain M89.8X8 Left side but no tenderness 3. Groin pain, left R10.32 To anterior thigh proximally Above issues addressed with patient. Patient involved in shared decision making for management of medical issues. History and medications reviewed. Epic updated as needed Refills and/or prescriptions taken care of and meds adjusted as indicated after reviewed history, exam and labs. Okay to take Aleve twice daily for a few days. Await results of [employer] testing. Further evaluation and treatment as indicated. Appears to be musculoskeletal and possibly anterior hip flexor strain but also has some symptoms of possible nerve impingement. Further evaluation and treatment as indicated. I spent a total of 23 minutes on the date of the service which included [id number] patient care, completing clinical documentation, performing a medically appropriate examination, and counseling and educating the patient/family/caregiver. Conrad Cisneros MD [facility] 07-05-2023 History of Present illness Narrative Images from the original note were not included. This note was created using ServiceMax. Subjective Fern Woodruff is a 43 year old female. Patient presents with: Left Hip Pain: X 1.5 months SUBJECTIVE: Fern Woodruff is a 43 year old year old lady here today for up appointment for review of medical conditions: Left side pain. Since mid-May. Left sided pain that goes over iliac crest and down to LLQ and down into her anterior thigh. Aleve does help but area stays tender. Does a lot of stretching and not able to do butterfly stretch without causing pain. Pain comes and goes. Does not happen when sitting or laying. Not there when had period. Saw [facility] [facility]--getting US of ovaries. PAST MEDICAL HISTORY Diagnosis Date Abnormal glandular Papanicolaou smear of cervix Abn. Pap smear (cervix) Migraine, unspecified, with intractable migraine, so stated, without mention of status migrainosus Migraine Tran 06/09/2012 Vitiligo Current Outpatient Medications Medication Sig multivitamin tablet Take 1 tablet by mouth once daily. Magnesium Glycinate 120 mg (Pure Encapsulations) Take 6 capsules daily. (Patient taking differently: Take 4 capsules daily. ) ProOmega 120 gels - Lemon ([employer]) Take 2 capsules by mouth daily with food. No current facility-administered medications for this visit. D Review of Systems Constitutional: Negative for chills, fever and unexpected weight change. Gastrointestinal: Positive for abdominal pain (LLQ associated with iliac crest pain and tenderness). Negative for constipation, diarrhea and rectal pain. Genitourinary: Negative for dysuria and frequency. Objective BP (P) 134/72 (BP Site: Left Arm, BP Position: Sitting, BP Cuff Size: Regular Adult) Pulse (P) 72 Wt (P) 70.8 kg (156 lb) LMP 09/10/2019 BMI (P) 29.48 kg/m Physical Exam Abdominal: General: Abdomen is flat. There is no distension. Palpations: Abdomen is soft. There is no mass. Tenderness: There is abdominal tenderness (LLQ, mild). There is no guarding or rebound. Hernia: No hernia is present. Musculoskeletal: Legs: Assessment and Plan Encounter Diagnosis ICD-10-CM 1. LLQ abdominal pain R10.32 2. Iliac crest bone pain M89.8X8 Left side but no tenderness 3. Groin pain, left R10.32 To anterior thigh proximally Above issues addressed with patient. Patient involved in shared decision making for management of medical issues. History and medications reviewed. Epic updated as needed Refills and/or prescriptions taken care of and meds adjusted as indicated after reviewed history, exam and labs. Okay to take Aleve twice daily for a few days. Await results of [employer] testing. Further evaluation and treatment as indicated. Appears to be musculoskeletal and possibly anterior hip flexor strain but also has some symptoms of possible nerve impingement. Further evaluation and treatment as indicated. I spent a total of 23 minutes on the date of the service which included [id number] patient care, completing clinical documentation, performing a medically appropriate examination, and counseling and educating the patient/family/caregiver. Conrad Cisneros MD documented in this encounter [facility] 03-12-2022 Instructions Amie Norris APRN.CNS - 03/12/2022 1:14 PM EDT We encourage the COVID-19 vaccine and influenza vaccine. If you decide to proceed with this you may get vaccinated at your local pharmacy or return to clinic for this. Check to see if your insurance covers Tdap (tetanus diptheria pertussis) vaccine and what location to get the vaccine. documented in this encounter [facility] 03-12-2022 History of Present illness Narrative SUBJECTIVE: COVID-19 VACCINE(1) Never done HEPATITIS C SCREENING Never done HIV SCREENING Never done DTAP,TDAP,TD(1 - Tdap) Never done MAMMOGRAM Never done PAP TESTING due on 08/15/2022 HPV TESTING due on 08/15/2022 HPI Fern Woodruff is a 41 year old female. Previously followed by Brad Zimmerman MD functional medicine. Presents today to establish care. In her usual state of health, no symptomatic complaints. Notes needs a routine physical exam and labwork. Current [facility]: Nayeli Kirby / Dr Gustafson. Last seen 2021. Former patient of Dr Fatimah LONGO, last seen 2013. Previous PCP, most recent: Kaleb Franco Last seen: 2019 Labwork: 2021 per [facility] [facility] 11/28/2021 -glucose 94 cholesterol 204 triglycerides 84 HDL 60 LDL 129 VLDL 17 TSH 2.48 vitamin D 32.8 11/2021 -negative mammogram ER/Hospitalization:none reported Outside records: [facility] Last 14 Encounter BP Readings: Date: BP: 03/12/2022 120/72 10/23/2019 128/74 09/11/2019 119/59 08/14/2019 138/64 08/08/2018 120/68 08/15/2017 104/62 02/07/2017 116/70 10/10/2016 102/68 06/18/2016 118/72 11/08/2015 104/62 06/15/2015 110/70 11/19/2014 100/64 11/12/2014 100/80 11/02/2014 122/80 Review of Systems Constitutional: Negative. Objective BP 120/72 Pulse 72 Resp 16 Ht 154.9 cm (5' 1 ) Wt 67.6 kg (149 lb) LMP 09/10/2019 BMI 28.15 kg/m Physical Exam Vitals and nursing note reviewed. Constitutional: Appearance: Normal appearance. HENT: Head: Normocephalic and atraumatic. Eyes: Conjunctiva/sclera: Conjunctivae normal. Neck: Thyroid: No thyroid mass or thyromegaly. Vascular: Normal carotid pulses. No carotid bruit or JVD. Cardiovascular: Rate and Rhythm: Normal rate and regular rhythm. Heart sounds: Normal heart sounds. Abdominal: General: Bowel sounds are normal. Palpations: Abdomen is soft. Musculoskeletal: Right lower leg: No edema. Left lower leg: No edema. Skin: General: Skin is warm and dry. Neurological: General: No focal deficit present. Mental Status: She is alert. ALLERGIES Allergen Reactions Terazol 3 [Terconaz* HEADACHES MEDICATIONS multivitamin tablet, Take 1 tablet by mouth once daily. Magnesium Glycinate 120 mg (Pure Encapsulations), Take 6 capsules daily. ProOmega 120 gels - Lemon ([employer]), Take 2 capsules by mouth daily with food. PAST MEDICAL HISTORY Diagnosis Date Abnormal glandular Papanicolaou smear of cervix Abn. Pap smear (cervix) Migraine, unspecified, with intractable migraine, so stated, without mention of status migrainosus Migraine Jessicamandeeptessa 06/09/2012 Vitiligo PAST SURGICAL HISTORY Procedure Laterality Date COLPOSCOPY CERVIX UPPER/ADJACENT VAGINA 2001 Colposcopy Social History Tobacco Use Smoking status: Never Smoker Smokeless tobacco: Never Used Substance Use Topics Alcohol use: Yes Alcohol/week: 2.5 standard drinks Types: 1 Glasses of Wine (5oz) per week Comment: OCCASIONALLY Drug use: No FAMILY HISTORY Problem Relation Age of Onset other (universal alopecia) Mother 12yrs, returned with stress Lipids Father Heart Paternal Grandfather [place] Stroke Paternal Grandmother Diabetes Maternal Grandfather Cancer Maternal Grandmother Lung other (epilpsy) Son Thyroid Maternal Aunt Stroke Sister Breast Cancer Sister MGGM other (Other) Sister No first assistant/colon cancer Component Latest Ref Rng & Units 08/14/2019 IgA 78 - 391 mg/dL 117 Transglutaminase Ab, IgA <20 Units 3 Interpretation (Celiac Screen) No serologic evidence of celiac disease. No serologic evidence of celiac disease. Free T3 2.3 - 4.1 pg/mL 3.2 Free T4 0.9 - 1.7 ng/dL 1.3 TSH 0.400 - 5.500 uU/mL 1.720 Vitamin D 25 Hydroxy 31.0 - 80.0 ng/mL 36.9 ASSESSMENT/PLAN: 1. Routine medical exam - ICD9: V70.0, ICD10: Z00.00 (primary diagnosis) - Endorse a healthy plant-based diet such as Mediterranean diet and regular exercise such as walking - Endorse calcium intake through diet or supplements 1000 mg/day for under 50 - HEP C AB IA W/CONF SCRN - HIV 1 2 COMBO(AG/AB),WITH REFLEX TO DIFFERENTIATION - CBC + DIFF - COMP METABOLIC PANEL 2. Encounter for screening for HIV - ICD9: V73.89, ICD10: Z11.4 - HIV 1 2 COMBO(AG/AB),WITH REFLEX TO DIFFERENTIATION 3. Need for hepatitis C screening test - ICD9: V73.89, ICD10: Z11.59 - HEP C AB IA W/CONF SCRN Amie Norris APRN.GROUP PROGRAM MANAGER documented in this encounter [facility] documented as of this encounter (statuses as of 03/12/2022) [facility]07-23-2012 History of Past illness Narrative* Problem Noted Date Diagnosed Date Resolved Date Abdominal pain, left lower quadrant 06/09/2012 06/11/2013 Mitteeliana 06/09/2012 11/02/2014 Hyperemesis gravidarum with metabolic disturbance, antepartum 07/21/2008 02/09/2010 Other and unspecified noninf ectious gastroenteritis and colitis(558.9) 07/21/200811/02 Backache, unspecified 06/14/20082013 Scar condition and fibrosis of skin 06/02/2008 11/02/2014 Neoplasm of uncertain behavior of skin 02/18/2008 11/02/2014 NEVUS////BENIGN ALONA SKIN FACE NEC 02/18/2008 11/02/2014 NEVI///BENIGN ALONA SCALP/SKIN NECK 02/18/2008 11/02/2014 SOLAR LENGINES///DYSCHROMIA OTHER 02/18/2008 11/02/2014 Benign neoplasm of skin of l ower limb, including hip 02/26/2007 11/02/2014 Benign neoplasm of skin of t runk, except scrotum 11/08/2006 11/02/2014 Benign neoplasm of skin of u pper limb, including shoulder 11/08/2006 11/02/2014 Other chronic dermatitis due to solar radiation 11/08/2006 11/02/2014 documented as of this encounter (statuses as of 07/05/2023) [facility] History of Past illness Narrative* Problem Noted Date Diagnosed Date Resolved Date Abdominal pain, left lower quadrant 06/09/2012 06/11/2013 Mittelscarolynmerarpan 06/09/2012 11/02/2014 Hyperemesis gravidarum with metabolic disturbance, antepartum 07/21/2008 02/09/2010 Other and unspecified noninf ectious gastroenteritis and colitis(558.9) 07/21/200811/02 Backache, unspecified 06/14/20082013 Scar condition and fibrosis of skin 06/02/2008 11/02/2014 Neoplasm of uncertain behavior of skin 02/18/2008 11/02/2014 NEVUS////BENIGN ALONA SKIN FACE NEC 02/18/2008 11/02/2014 NEVI///BENIGN ALONA SCALP/SKIN NECK 02/18/2008 11/02/2014 SOLAR LENGINES///DYSCHROMIA OTHER 02/18/2008 11/02/2014 Benign neoplasm of skin of l ower limb, including hip 02/26/2007 11/02/2014 Benign neoplasm of skin of t runk, except scrotum 11/08/2006 11/02/2014 Benign neoplasm of skin of u pper limb, including shoulder 11/08/2006 11/02/2014 Other chronic dermatitis due to solar radiation 11/08/2006 11/02/2014 documented as of this encounter (statuses as of 07/15/2023) [facility] note* Diagnosis Routine medical exam- Primary Routine general medical examination at a health care facility Encounter for screening for HIV Need for hepatitis C screening test Special screening examination for other specified viral diseases documented in this encounter [facility] note* Diagnosis LLQ abdominal pain- Primary Abdominal pain, left lower quadrant Iliac crest bone pain Disorder of bone and cartilage, unspecified Groin pain, left documented in this encounter [facility] note* Diagnosis Encounter for screening mammogram for breast cancer documented in this encounter [facility] for referral (narrative)* Diagnostic Procedure Only (Routine) - Pending Review Specialty Diagnoses / Procedures Referred By Chang jay Referred To Contact [facility] Diagnoses Encounter for screening mammogram for breast cancer Procedures MARITZA SCREENING SCREENING MAMMOGRAPHY BI 2-VIEW BREAST INC CAD Conrad Cisneros MD [address] [place] [address] [facility] [address] [place] [address] Referral ID Status Reason Start Date Expiration Date Visits Requested Visits Authorized [id number] Pending Review Auto-Generat ed Referral 07/10/2023 08/08/2024 1 1 [facility] Summary Purpose Family History No Family History Records Found Advance Directives No Advanced Directives Records Found Additional Source Comments Source Comments (unrecognize d section and content) In the event this informatio n is protected by the Federal Confidentiality of Alcohol and Drug Abuse Patient Records regulations: The Federal rules restrict any use of the information to criminally investigate or prosecute any alcohol or drug abuse patient.[facility] the event this information is protected by the Federal Confidentiality of Alcohol and Drug Abuse Patient Records regulations: The Federal rules restrict any use of the information to criminally investigate or prosecute any alcohol or drug abuse patient.[facility] the event this information is protected by the Federal Confidentiality of Alcohol and Drug Abuse Patient Records regulations: The Federal rules restrict any use of the information to criminally investigate or prosecute any alcohol or drug abuse patient.[facility] Reason for Visit (unrecogniz ed section and content) Reason Comments Left Hip Pain X 1.5 months Care Teams (unrecognized sec tion and content) Cover Inspector Relationship Specialty Start Date End Date Conrad Cisneros MD [address] [place] [address] PCP - General Internal Medicine 03/12/22 Cover Inspector Relationship Specialty Start Date End Date Conrad Cisneros MD [address] [place] [address] PCP - General Internal Medicine 03/12/22 INFORMATION SOURCE (unrecogn ized section and content) FOR RECORDS PERTAINING TO PATIENTS WHO ARE OR HAVE BEEN ENROLLED IN A CHEMICAL DEPENDENCY/SUBSTANCEABUSE PROGRAM, SOME INFORMATION MAY BE OMITTED. This clinical summary was aggregated from multiple sources. Caution should be exercised in using it in the provision of clinical care. This summary normalizes information from multiple sources, and as a consequence, information in this document may materially change the coding, format and clinical context of patient data. In addition, data may be omitted in some cases. CLINICAL DECISIONS SHOULD BE BASED ON THE PRIMARY CLINICAL RECORDS. [email or web address] [facility]. provides no warranty or guarantee of the accuracy or completeness of information in this document.
== END | disposition home or self-care (01) ==
LOC: OPBI 10:55
PROVIDERS: PCP Internal Medicine; Referring Provider Obstetrics & Gynecology; Visit Provider Obstetrics & Gynecology
DX: Z12.31 Encounter for screening mammogram for malignant neoplasm of breast (principal)
CPT/HCPCS: 77063; 77067

== ENCOUNTER → 2023-12-10 | Outpatient (CLI) | payer OTHER, SELFPAY ==
--- NOTE | 2023-12-10 10:50 | US_ITS ---
STUDY: ULTRASOUND BREAST - LEFT REASON FOR EXAM: Female, 43 years old. Abnormal screening mammogram. TECHNIQUE: Axial and longitudinal images of the LEFT breast were performed with a high resolution ultrasound transducer. # OF IMAGES: 6 COMPARISON: Comparison is made with prior mammogram dated November. FINDINGS: LEFT Breast: The mammographic abnormality corresponds to a 1.7 cm x 1.6 cm x 0.9 cm cyst at the 3:00 position of the breast at 7 cm from the nipple. US/Breast Limited Unilateral IMPRESSION: 1.7 cm x 1.6 cm x 0.9 cm cyst at the 3:00 position in the breast at 7 cm from the nipple. ASSESSMENT CATEGORY: BIRADS Category 2: Benign. A letter regarding these results will be sent to the patient by the facility within 30 days. Electronically Signed: Eduin Solo MD at 13:12 EST ,
--- OUTSIDE RECORDS SUMMARY | 2023-12-10 11:50 | XMS RPT_ITS | CCD ---
Author Name Unknown Address [address] [place] [address] Organization [facility] Care Team Providers Care Electrical Automation Engineer Name Role Phone Francy Doherty Unavailable Unavailable Francy Doherty Unavailable Unavailable Conrad Cisneros MD Primary Care Provider Conrad Cisneros MD Primary Care Provider AMIE NORRIS Attending Unavailable CONRAD CISNEROS Primary Care Unavailable CONRAD CISNEROS Primary Care Unavailable CONRAD CISNEROS Attending Unavailable Allergies Allergy Classification Reported Allergen(s) Allergy Type Date of Onset Reaction(s) Facility (4 sources) terconazole; Translations: [TERCONAZOLE] Drug Allergy 06-10-2008 [facility] Work Phone: Medications Completed/Discontinued Medications Medication Drug Class(es) Dates Sig (Normalized) Sig (Original) amoxicillin 875 mg oral tablet (2 sources) Penicillin-class Antibacterial Start: 03-08-2010 End: 03-18-2010 AMOXICILLIN 875 MG TABS one tab twice daily for 10 days AMOXICILLIN [id number] Portia High CNP B COMPLEX VITAMINS (2 sources) Start: 08-22-2017 B COMPLEX VITAMINS CAPS B COMPLEX VITAMINS [id number] Adrienne Cardenas MD Cholecalciferol (2 sources) Vitamin D Start: 08-22-2017 GNP VITAMIN D3 EXTRA STRENGTH TABS CHOLECALCIFEROL TABS [id number] Adrienne Cardenas MD krill oil 1000 mg oral capsule (2 sources) Start: 08-22-2017 KRILL OIL 1000 MG CAPS KRILL OIL [id number] Adrienne Cardenas MD Magnesium glycinate (3 sources) [...] 12:57-0400 Body height 154.9 cm Amie Norris PICKER PACKER.RECRUIT INSTRUCTOR Work Phone: [facility] 03-12-2022 12:57-0400 Body weight 67.59 kg Amie Norris PICKER PACKER.RECRUIT INSTRUCTOR Work Phone: [facility] 03-12-2022 12:57-0400 Diastolic blood pressure 72 mm[Hg] Amie Jr PICKER PACKER.RECRUIT INSTRUCTOR Work Phone: [facility] 03-12-2022 12:57-0400 Heart rate 72 /min Amie Duffs PICKER PACKER.RECRUIT INSTRUCTOR Work Phone: [facility] 03-12-2022 12:57-0400 Respiratory rate 16 /min Amie Duffs PICKER PACKER.RECRUIT INSTRUCTOR Work Phone: [facility] 03-12-2022 12:57-0400 Systolic blood pressure 120 mm[Hg] Amie Duffs PICKER PACKER.RECRUIT INSTRUCTOR Work Phone: [facility] 08-22-2017 13:26-0400 BMI (Body Mass Index) 24.94 kg/m2 [facility] Work Phone: 08-22-2017 13:26-0400 BP Diastolic 79 mm[Hg] [facility] Work Phone: 08-22-2017 13:26-0400 BP Systolic 148 mm[Hg] [facility] Work Phone: 08-22-2017 13:26-0400 Height 154.94 cm [facility] Work Phone: 08-22-2017 13:26-0400 Pulse (Heart Rate) 65 /min [facility] Work Phone: 08-22-2017 13:26-0400 Respiratory Rate 18 /min [facility] Work Phone: 08-22-2017 13:26-0400 Weight 59.88 kg [facility] Work Phone: 03-08-2010 10:33-0400 Body Temperature 98.3 [degF] [facility] Work Phone: Encounters Encounter Date Encounter Type Care Provider Facility Start: 11-19-2023 End: 11-19-2023 ambulatory [facility] Facility:[facility] Start: 07-10-2023 ambulatory Conrad meade MD Work Phone: Internal Medicine [facility] Start: 07-05-2023 End: 07-06-2023 ambulatory CONRAD CISNEROS Facility:[facility] Start: 07-05-2023 End: 07-05-2023 Office outpatient visit 15 minutes Conrad Cisneros MD Work Phone: Internal Medicine [place] Procedures Date Procedure Procedure Detail Performing Clinician Start: 03-12-2022 Adult depression scr eening assessment Amie Norris PICKER PACKER.RECRUIT INSTRUCTOR Work Phone: Start: 11-28-2021 Mammography Amie Gunnero ks PICKER PACKER.RECRUIT INSTRUCTOR Work Phone: Plan of Treatment Date Care Activity Detail Author Start: 07-19-2023 Influenza vaccination INFLUENZA (#1) [facility] Start: 03-12-2023 Adult depression scr eening assessment DEPRESSION SCREENING [facility] Start: 03-12-2023 COVID-19 VACCINE (1) COVID-19 VACCIN E (1) [facility] Immunizations Immunization Date Immunization Notes Care Provider Fa cililashay 12-13-2021 influenza virus vaccine, unspecified formulation Amie Norris PICKER PACKER.RECRUIT INSTRUCTOR Work Phone: [facility] Work Phone: 11-25-2012 influenza virus vaccine, live, attenuated, for intranasal use Amie Norris PICKER PACKER.RECRUIT INSTRUCTOR Work Phone: [facility] Work Phone: 08-18-2011 influenza virus vaccine, live, attenuated, for intranasal use Amie Norris PICKER PACKER.RECRUIT INSTRUCTOR Work Phone: [facility] Work Phone: 08-14-2010 influenza virus vaccine, unspecified formulation Amie Norris PICKER PACKER.RECRUIT INSTRUCTOR Work Phone: [facility] Work Phone: 09-20-2009 novel [id number], all formulations Amie Norris PICKER PACKER.RECRUIT INSTRUCTOR Work Phone: [facility] Work Phone: 08-13-2009 influenza virus vaccine, unspecified formulation Amie Norris PICKER PACKER.RECRUIT INSTRUCTOR Work Phone: [facility] 09-23-2008 influenza virus vaccine, unspecified formulation Amie Norris PICKER PACKER.RECRUIT INSTRUCTOR Work Phone: [facility] Work Phone: Payers Date Payer Category Payer Unknown ANA M IN PRE RAMIR[employer]DED [id number] 2019-Present [phone] [address] [place] [address] PPO [id number] 2019 Unknown [facility] PRE [employer]IR[employer] SELF FUNDED [id number] 2019-Present [phone] [address] [place] [address] PPO [id number] 2019 Unknown [id number] Social History Date Type Detail Facility Start: 04-26-2011 Tobacco smoking status PRIS Never smoked tobacco [facility] Work Phone: Start: 03-12-2022 Alcohol intake Current drinker of alcohol (finding) [facility] Start: 03-12-2022 End: 07-05-2023 Alcohol intake [facility] Start: 03-05-2022 History SDOH Alcohol Frequency 3 [facility] Start: 03-05-2022 History SDOH Alcohol Std Drinks 1 [facility] Start: 08-14-2019 History SDOH Alcohol Comment OCCASIONALLY [facility] Start: 03-05-2022 History SDOH Social Connections Phone 5 [facility] Start: 03-05-2022 History SDOH Social Connections Membership 2 [facility] Start: 1980 Sex Assigned At Not on file [facility] Start: 03-02-2022 End: 03-12-2022 Exposure to SARS-CoV-2 (event) Not sure [facility] Work Phone: Start: 04-26-2011 Tobacco use and exposure Smokeless tobacco non-user [facility] Work Phone: Start: 03-05-2022 End: 07-05-2023 Social connection and isolation panel [facility] Do you belong to any clubs or organizations such as holiness groups, unions, fraternal or athletic groups, or school groups? No [facility] Are you now , , , , never or living with a partner? [facility] How often to you hav e a drink containing alcohol? 2-4 times a month [facility] How many standard dr inks containing alcohol do you have on a typical day? 1 or 2 [facility] How often do you hav e 6 or more drinks on 1 occasion? Never [facility] How hard is it for y ou to pay for the very basics like food, housing, medical care, and heating Not hard at all [facility] Do you feel stress - tense, restless, nervous, or anxious, or unable to sleep at night because your mind is troubled all the time - these days [OSQ] Not at all [facility] (I/We) worried wheth er (my/our) food would run out before (I/we) got money to buy more. Never true [facility] Clinical Notes 06-09-2012 to 11-19-2023 Conrad Cisneros MD - 07/05/2023 10:34 AM EDTPatient InstructionsTerri MATEO Norris.RECRUIT INSTRUCTOR - 03/12/2022 1:00 PM EDT Note Date & Type Note Facility 11-19-2023 Note HNO ID: [id number] Author: Amie Norris APRN.CAYDEN Service: ? Author [...] fever. Notes colonoscopy 2017 Dr Cardenas at [facility] for similar complaint. She thinks possible [...] the past with colonoscopy with Dr. Drake [facility] 2016. Will obtain records re: this. Recommend follow up with colonoscopy for further evaluation. If abdominal pain / similar occurrence in the future would recommend office visit while occurring for further evaluation and treatment as indicated. - CONSULT TO GASTROENTEROLOGY - CONSULT TO GENERAL SURGERY Total Time Spent: 20 minutes Amie Norris APRN.[facility] 07-10-2023 Note Patient Outreach (IN TMMN) FERN WOODRUFF ([id number]) 1980 F Date Time Provider Department 07/10/23 CONRAD CISNEROS During your visit today, we recorded the following information about you: Allergies As of Date: 07/10/2023 Noted Allergy Reaction TERAZOL 3 (TERCONAZOLE) 06/10/2008 Comments: HEADACHES Date Reviewed: 07/05/2023 Reviewed by: Saira Hardy LPN - Fully Assessed Visit Diagnosis:Encounter for screening mammogram for breast cancer [Z12.31] Order(s):[facility] SCREENING [[id number]] Order #: [id number] FUTURE Prescriptions as of 07/15/2023 - multivitamin tablet Take 1 tablet by mouth once daily. - Magnesium Glycinate 120 mg (Pure Encapsulations) Take 6 capsules daily. - ProOmega 120 gels - Lemon ([employer]) Take 2 capsules by mouth daily [...] Encounter Status:Closed by EPIC, PRODUSER on 07/15/23 [facility] 07-05-2023 Note HNO ID: [id number] Author: Conrad Cisneros MD Service: ? Author [...] laying. Not there when had period. Saw [facility]--getting US of ovaries. PAST MEDICAL HISTORY Diagnosis [...] daily. ) ProOmega 120 gels - Lemon ([employer]) Take 2 capsules by mouth daily [...] for a few days. Await results of [facility]ARE [facility] testing. Further evaluation and treatment as indicated. Appears to be musculoskeletal and possibly anterior hip flexor strain but also has some symptoms of possible nerve impingement. Further evaluation and treatment as indicated. I spent a total of 23 minutes on the date of the service which included [id number] patient care, completing clinical documentation, performing a medically appropriate examination, and counseling and educating the patient/family/caregiver. Conrad Cisneros MD [facility] 07-05-2023 History of Present illness Narrative Images from the original note were not included. This note was created using [employer]. Subjective Fern Woodruff is a 43 year [...] laying. Not there when had period. Saw [facility]--getting US of ovaries. PAST MEDICAL HISTORY Diagnosis [...] daily. ) ProOmega 120 gels - Lemon ([employer]) Take 2 capsules by mouth daily [...] for a few days. Await results of HEALTHCARE OR MEDICAL testing. Further evaluation and treatment as indicated. Appears to be musculoskeletal and possibly anterior hip flexor strain but also has some symptoms of possible nerve impingement. Further evaluation and treatment as indicated. I spent a total of 23 minutes on the date of the service which included [id number] patient care, completing clinical documentation, performing a medically appropriate examination, and counseling and educating the patient/family/caregiver. Conrad Cisneros MD documented in this encounter [facility] 03-12-2022 Instructions Amie Norris APRN.CNS - 03/12/2022 1:14 PM EDT We encourage the COVID-19 vaccine and influenza vaccine. If you decide to proceed with this you may get vaccinated at your local pharmacy or return to clinic for this. Check to see if your insurance covers Tdap (tetanus diptheria pertussis) vaccine and what location to get the vaccine. documented in this encounter [facility] 03-12-2022 History of Present illness Narrative SUBJECTIVE: [...] a routine physical exam and labwork. Current HEALTHCARE FINANCIAL ANALYST [facility]: Nayeli Kirby / Dr Gustafson. Last seen 2021. Former patient of Dr Fatimah LONGO, last seen 2013. Previous PCP, most recent: Kaleb Franco Last seen: 2019 Labwork: 2021 per [facility] 11/28/2021 -glucose 94 cholesterol 204 triglycerides 84 HDL 60 LDL 129 VLDL 17 TSH 2.48 vitamin D 32.8 11/2021 -negative mammogram ER/Hospitalization:none reported Outside records: [facility] Last 14 Encounter BP Readings: Date: [...] capsules daily. ProOmega 120 gels - Lemon ([employer]), Take 2 capsules by mouth daily [...] with stress Lipids Father Heart Paternal Grandfather [place] Stroke Paternal Grandmother Diabetes Maternal Grandfather Cancer Maternal Grandmother Lung other (epilpsy) Son Thyroid Maternal Aunt Stroke Sister Breast Cancer Sister MGGM other (Other) Sister No crown pouncer/colon cancer Component Latest Ref Rng & Units [...] C AB IA W/CONF SCRN Amie Norris APRN.RECRUIT INSTRUCTOR documented in this encounter [facility] documented as of this encounter (statuses as of 03/12/2022) [facility]07-[facility] History of Past illness Narrative* Problem Noted [...] of this encounter (statuses as of 07/05/2023) [facility] History of Past illness Narrative* Problem Noted [...] of this encounter (statuses as of 07/15/2023) [facility] note* Diagnosis Routine medical exam- Primary Routine general medical examination at a health care facility Encounter for screening for HIV Need for hepatitis C screening test Special screening examination for other specified viral diseases documented in this encounter [facility] note* Diagnosis LLQ abdominal pain- Primary Abdominal pain, left lower quadrant Iliac crest bone pain Disorder of bone and cartilage, unspecified Groin pain, left documented in this encounter [facility] note* Diagnosis Encounter for screening mammogram for breast cancer documented in this encounter [facility] for referral (narrative)* Diagnostic Procedure Only (Routine) - Pending Review Specialty Diagnoses / Procedures Referred By Chang jay Referred To Contact [facility] Diagnoses Encounter for screening mammogram for breast cancer Procedures MARITZA SCREENING SCREENING MAMMOGRAPHY BI 2-VIEW BREAST INC CAD Conrad Cisneros MD [address] [place] [address] [facility] [address] [place] [address] Referral ID Status Reason Start Date Expiration Date Visits Requested Visits Authorized [id number] Pending Review Auto-Generat ed Referral 07/10/2023 08/08/2024 1 1 [facility] Summary Purpose Family History No Family History [...] or prosecute any alcohol or drug abuse patient.[facility] the event this information is protected by the Federal Confidentiality of Alcohol and Drug Abuse Patient Records regulations: The Federal rules restrict any use of the information to criminally investigate or prosecute any alcohol or drug abuse patient.[facility] the event this information is protected by the Federal Confidentiality of Alcohol and Drug Abuse Patient Records regulations: The Federal rules restrict any use of the information to criminally investigate or prosecute any alcohol or drug abuse patient.[facility] Reason for Visit (unrecogniz ed section and content) Reason Comments Left Hip Pain X 1.5 months Care Teams (unrecognized sec tion and content) Electrical Automation Engineer Relationship Specialty Start Date End Date Conrad Cisneros MD [address] [place] [address] PCP - General Internal Medicine 03/12/22 Electrical Automation Engineer Relationship Specialty Start Date End Date Conrad Cisneros MD [address] [place] [address] PCP - General Internal Medicine 03/12/22 INFORMATION [...] BE BASED ON THE PRIMARY CLINICAL RECORDS. [employer] [facility]. provides no warranty or guarantee of the accuracy or completeness of information in this document.
== END | disposition home or self-care (01) ==
LOC: OPBI 10:50
PROVIDERS: PCP Internal Medicine; Referring Provider Obstetrics & Gynecology; Visit Provider Obstetrics & Gynecology
DX: R92.8 Other abnormal and inconclusive findings on diagnostic imaging of breast (principal)
CPT/HCPCS: 76642

== ENCOUNTER 2024-01-29 06:41 | Day surgery (SDC) | payer OTHER, SELFPAY ==
[2024-01-29] VITALS (7 sets, daily range): BP systolic 97–111; BP diastolic 50–79; PULSE 59–78; RESP 16–18; TEMP 36.6–36.9; O2SAT 97–100; BMI 29.2
--- OUTSIDE RECORDS SUMMARY | 2024-01-29 06:43 | XMS RPT_ITS | CCD ---
Author Name Unknown Address [address] [place] [address] Organization [facility] Care Team Providers Care Printing Gray Cloth Tender Name Role Phone Francy Doherty Unavailable Unavailable Francy Doherty Unavailable Unavailable Conrad Cisneros MD Primary Care Provider Conrad Cisneros MD Primary Care Provider AMIE NORRIS Attending Unavailable CONRAD CISNEROS Primary Care Unavailable CONRAD CISNEROS Primary Care Unavailable CONRAD CISNEROS Attending Unavailable Allergies Allergy Classification Reported Allergen(s) Allergy Type Date of Onset Reaction(s) Facility (4 sources) terconazole; Translations: [TERCONAZOLE] Drug Allergy 06-10-[address] [facility] Work Phone: Medications Completed/Discontinued Medications Medication Drug Class(es) Dates Sig (Normalized) Sig (Original) amoxicillin 875 mg oral tablet (2 sources) Penicillin-class Antibacterial Start: 03-08-2010 End: 03-18-2010 AMOXICILLIN 875 MG TABS one tab twice daily for 10 days AMOXICILLIN [id number] Portia High CNP B COMPLEX VITAMINS (2 sources) Start: 08-22-2017 B COMPLEX VITAMINS CAPS B COMPLEX VITAMINS [id number] Adrienne Cardenas MD Cholecalciferol (2 sources) Vitamin D Start: 08-22-2017 GNP VITAMIN D3 EXTRA STRENGTH TABS CHOLECALCIFEROL TABS [id number] Adrienne Cardenas MD krill oil 1000 mg oral capsule (2 sources) Start: 08-22-2017 KRILL OIL 1000 MG CAPS KRILL OIL [id number] Adrienne Cardenas MD Magnesium glycinate (3 sources) [...] 12:57-0400 Body height 154.9 cm Amie Norris RETORT FURNACE OPERATOR.ASSOCIATE APPLICATION DEVELOPER Work Phone: [facility] 03-12-2022 12:57-0400 Body weight 67.59 kg Amie Norris RETORT FURNACE OPERATOR.ASSOCIATE APPLICATION DEVELOPER Work Phone: [facility] 03-12-2022 12:57-0400 Diastolic blood pressure 72 mm[Hg] Amie Jr RETORT FURNACE OPERATOR.ASSOCIATE APPLICATION DEVELOPER Work Phone: [facility] 03-12-2022 12:57-0400 Heart rate 72 /min Amie Duffs RETORT FURNACE OPERATOR.ASSOCIATE APPLICATION DEVELOPER Work Phone: [facility] 03-12-2022 12:57-0400 Respiratory rate 16 /min Amie Duffs RETORT FURNACE OPERATOR.ASSOCIATE APPLICATION DEVELOPER Work Phone: [facility] 03-12-2022 12:57-0400 Systolic blood pressure 120 mm[Hg] Amie Duffs RETORT FURNACE OPERATOR.ASSOCIATE APPLICATION DEVELOPER Work Phone: [facility] 08-22-2017 13:26-0400 BMI (Body Mass Index) 24.94 kg/m2 [facility] Work Phone: 08-22-2017 13:26-0400 BP Diastolic 79 mm[Hg] [facility] Work Phone: 08-22-2017 13:26-0400 BP Systolic 148 mm[Hg] [facility] Work Phone: 08-22-2017 13:26-0400 Height 154.94 cm [facility] Work Phone: 08-22-2017 13:26-0400 Pulse (Heart Rate) 65 /min [facility] Work Phone: 08-22-2017 13:26-0400 Respiratory Rate 18 /min [facility] Work Phone: 08-22-2017 13:26-0400 Weight 59.88 kg [facility] Work Phone: 03-08-2010 10:33-0400 Body Temperature 98.3 [degF] [facility] Work Phone: Encounters Encounter Date Encounter Type Care Provider Facility Start: 11-19-2023 End: 11-19-2023 ambulatory [facility] Facility:[facility] Start: 07-10-2023 ambulatory Conrad meade MD Work Phone: Internal Medicine [facility] Start: 07-05-2023 End: 07-06-2023 ambulatory CONRAD CISNEROS Facility:[facility] Start: 07-05-2023 End: 07-05-2023 Office outpatient visit 15 minutes Conrad Cisneros MD Work Phone: Internal Medicine [place] Procedures Date Procedure Procedure Detail Performing Clinician Start: 03-12-2022 Adult depression scr eening assessment Amie Norris RETORT FURNACE OPERATOR.ASSOCIATE APPLICATION DEVELOPER Work Phone: Start: 11-28-2021 Mammography Amie Gunnero ks RETORT FURNACE OPERATOR.ASSOCIATE APPLICATION DEVELOPER Work Phone: Plan of Treatment Date Care Activity Detail Author Start: 07-19-2023 Influenza vaccination INFLUENZA (#1) [facility] Start: 03-12-2023 Adult depression scr eening assessment DEPRESSION SCREENING [facility] Start: 03-12-2023 COVID-19 VACCINE (1) COVID-19 VACCIN E (1) [facility] Immunizations Immunization Date Immunization Notes Care Provider Fa cililashay 12-13-2021 influenza virus vaccine, unspecified formulation Amie Norris RETORT FURNACE OPERATOR.ASSOCIATE APPLICATION DEVELOPER Work Phone: [facility] Work Phone: 11-25-2012 influenza virus vaccine, live, attenuated, for intranasal use Amie Norris RETORT FURNACE OPERATOR.ASSOCIATE APPLICATION DEVELOPER Work Phone: [facility] Work Phone: 08-18-2011 influenza virus vaccine, live, attenuated, for intranasal use Amie Norris RETORT FURNACE OPERATOR.ASSOCIATE APPLICATION DEVELOPER Work Phone: [facility] Work Phone: 08-14-2010 influenza virus vaccine, unspecified formulation Amie Norris RETORT FURNACE OPERATOR.ASSOCIATE APPLICATION DEVELOPER Work Phone: [facility] Work Phone: 09-20-2009 novel [id number], all formulations Amie Norris RETORT FURNACE OPERATOR.ASSOCIATE APPLICATION DEVELOPER Work Phone: [facility] Work Phone: 08-13-2009 influenza virus vaccine, unspecified formulation Amie Norris RETORT FURNACE OPERATOR.ASSOCIATE APPLICATION DEVELOPER Work Phone: [facility] 09-23-2008 influenza virus vaccine, unspecified formulation Amie Norris RETORT FURNACE OPERATOR.ASSOCIATE APPLICATION DEVELOPER Work Phone: [facility] Work Phone: Payers Date Payer Category Payer Unknown ANA M OR PRE RAMIRO SELF FUNDED [id number] 2019-Present [phone] [address] [place] [address] PPO [id number] 2019 Unknown [facility] PRE RAMIRO SELF FUNDED [id number] 2019-Present [phone] [address] [place] [address] PPO [id number] 2019 Unknown [id number] Social History Date Type Detail Facility Start: 04-26-2011 Tobacco smoking status COIS Never smoked tobacco [facility] Work Phone: Start: 03-12-2022 Alcohol intake Current drinker of alcohol (finding) [facility] Start: 03-12-2022 End: 07-05-2023 Alcohol intake [facility] Start: 03-05-2022 History SDOH Alcohol Frequency [address] [facility] Start: 03-05-2022 History SDOH Alcohol Std Drinks [address] [facility] Start: 08-14-2019 History SDOH Alcohol Comment OCCASIONALLY [facility] Start: 03-05-2022 History SDOH Social Connections Phone [address] [facility] Start: 03-05-2022 History SDOH Social Connections Membership [address] [facility] Start: 1980 Sex Assigned At Not on file [facility] Start: 03-02-2022 End: 03-12-2022 Exposure to SARS-CoV-2 (event) Not sure [facility] Work Phone: Start: 04-26-2011 Tobacco use and exposure Smokeless tobacco non-user [facility] Work Phone: Start: 03-05-2022 End: 07-05-2023 Social connection and isolation panel [facility] Do you belong to any clubs or organizations such as mu-ism groups, unions, fraternal or athletic groups, or school groups? No [facility] Are you now , , , , never or living with a partner? [facility] How often to you hav e a drink containing alcohol? 2-4 times a month [facility] How many standard dr inks containing alcohol do you have on a typical day? 1 or [address] [facility] How often do you hav e 6 or more drinks on 1 occasion? Never [facility] How hard is it for y ou to pay for the very basics like food, housing, medical care, and heating Not hard at all [facility] Do you feel stress - tense, restless, nervous, or anxious, or unable to sleep at night because your mind is troubled all the time - these days [OSQ] Not at all [facility] (I/We) worried wheth er (my/our) food would run out before (I/we) got money to buy more. Never true [facility] Clinical Notes 06-09-2012 to 11-19-2023 Conrad Cisneros MD - 07/05/2023 10:34 AM EDTPatient InstructionsTerri MATEO Norris.ASSOCIATE APPLICATION DEVELOPER - 03/12/2022 1:00 PM EDT Note Date & Type Note Facility 11-19-2023 Note HNO ID: [id number] Author: Amie Norris APRN.[facility] Service: ? Author [...] fever. Notes colonoscopy 2017 Dr Cardenas at [facility] for similar complaint. She thinks possible diverticulitis [...] the past with colonoscopy with Dr. Drake [facility] 2016. Will obtain records re: this. Recommend follow up with colonoscopy for further evaluation. If abdominal pain / similar occurrence in the future would recommend office visit while occurring for further evaluation and treatment as indicated. - CONSULT TO GASTROENTEROLOGY - CONSULT TO GENERAL SURGERY Total Time Spent: 20 minutes Amie Norris APRN.[facility] 07-10-2023 Note Patient Outreach (IN TMMN) FERN WOODRUFF ([id number]) 1980 F Date Time Provider Department 07/10/23 CONRAD CISNEROS During your visit today, we recorded the following information about you: Allergies As of Date: 07/10/2023 Noted Allergy Reaction TERAZOL 3 (TERCONAZOLE) 06/10/2008 Comments: HEADACHES Date Reviewed: 07/05/2023 Reviewed by: Saira Hardy LPN - Fully Assessed Visit Diagnosis:Encounter for screening mammogram for breast cancer [Z12.31] Order(s):[facility] SCREENING [[id number]] Order #: [id number] FUTURE Prescriptions as of 07/15/2023 - multivitamin tablet Take 1 tablet by mouth once daily. - Magnesium Glycinate 120 mg (Pure Encapsulations) Take 6 capsules daily. - ProOmega 120 gels - Lemon ([employer]) Take 2 capsules by mouth daily [...] Encounter Status:Closed by EPIC, PRODUSER on 07/15/23 [facility] 07-05-2023 Note HNO ID: [id number] Author: Conrad Cisneros MD Service: ? Author [...] laying. Not there when had period. Saw PROSTHODONTIST--getting US of ovaries. PAST MEDICAL HISTORY Diagnosis [...] daily. ) ProOmega 120 gels - Lemon ([employer]) Take 2 capsules by mouth daily [...] for a few days. Await results of PROSTHODONTIST testing. Further evaluation and treatment as indicated. Appears to be musculoskeletal and possibly anterior hip flexor strain but also has some symptoms of possible nerve impingement. Further evaluation and treatment as indicated. I spent a total of 23 minutes on the date of the service which included [id number] patient care, completing clinical documentation, performing a medically appropriate examination, and counseling and educating the patient/family/caregiver. Conrad Cisneros MD [facility] 07-05-2023 History of Present illness Narrative Images from the original note were not included. This note was created using WebSideStory. Subjective Fern Woodruff is a 43 year [...] laying. Not there when had period. Saw PROSTHODONTIST--getting US of ovaries. PAST MEDICAL HISTORY Diagnosis [...] daily. ) ProOmega 120 gels - Lemon ([employer]) Take 2 capsules by mouth daily [...] for a few days. Await results of PROSTHODONTIST testing. Further evaluation and treatment as indicated. Appears to be musculoskeletal and possibly anterior hip flexor strain but also has some symptoms of possible nerve impingement. Further evaluation and treatment as indicated. I spent a total of 23 minutes on the date of the service which included [id number] patient care, completing clinical documentation, performing a medically appropriate examination, and counseling and educating the patient/family/caregiver. Conrad Cisneros MD documented in this encounter [facility] 03-12-2022 Instructions Amie Norris APRN.CNS [...] get the vaccine. documented in this encounter [facility] 03-12-2022 History of Present illness [...] a routine physical exam and labwork. Current [facility]ER WHIP[employer] TOP[facility]: Nayeli Kirby / Dr Gustafson. Last seen 2021. Former patient of Dr Fatimah LONGO, last seen 2013. Previous PCP, most recent: Kaleb Franco Last seen: 2019 Labwork: 2021 per PROSTHODONTIST 11/28/2021 -glucose 94 cholesterol 204 triglycerides 84 HDL 60 LDL 129 VLDL 17 TSH 2.48 vitamin D 32.8 11/2021 -negative mammogram ER/Hospitalization:none reported Outside records: [facility] Last 14 Encounter BP Readings: Date: BP: [...] capsules daily. ProOmega 120 gels - Lemon ([employer]), Take 2 capsules by mouth daily [...] with stress Lipids Father Heart Paternal Grandfather PR Stroke Paternal Grandmother Diabetes Maternal Grandfather Cancer Maternal Grandmother Lung other (epilpsy) Son Thyroid Maternal Aunt Stroke Sister Breast Cancer Sister MGGM other (Other) Sister No fast food crew lead/colon cancer Component Latest Ref Rng & Units [...] C AB IA W/CONF SCRN Amie Norris APRN.ASSOCIATE APPLICATION DEVELOPER documented in this encounter [facility] documented as of this encounter (statuses as of 03/12/2022) [facility]07[facility] History of Past illness Narrative* [...] of this encounter (statuses as of 07/05/2023) [facility] History of Past illness Narrative* [...] of this encounter (statuses as of 07/15/2023) [facility] note* Diagnosis Routine medical exam- Primary Routine general medical examination at a health care facility Encounter for screening for HIV Need for hepatitis C screening test Special screening examination for other specified viral diseases documented in this encounter [facility] note* Diagnosis LLQ abdominal pain- Primary Abdominal pain, left lower quadrant Iliac crest bone pain Disorder of bone and cartilage, unspecified Groin pain, left documented in this encounter [facility] note* Diagnosis Encounter for screening mammogram for breast cancer documented in this encounter [facility] for referral (narrative)* Diagnostic Procedure Only (Routine) - Pending Review Specialty Diagnoses / Procedures Referred By Chang jay Referred To Contact [facility] Diagnoses Encounter for screening mammogram for breast cancer Procedures MARITZA SCREENING SCREENING MAMMOGRAPHY BI 2-VIEW BREAST INC CAD Conrad Cisneros MD [address] [place] [address] [facility] [address] [place] [address] Referral ID Status Reason Start Date Expiration Date Visits Requested Visits Authorized [id number] Pending Review Auto-Generat ed Referral 07/10/2023 08/08/2024 [address] [facility] Summary Purpose Family History No [...] or prosecute any alcohol or drug abuse patient.[facility] the event this information is protected by the Federal Confidentiality of Alcohol and Drug Abuse Patient Records regulations: The Federal rules restrict any use of the information to criminally investigate or prosecute any alcohol or drug abuse patient.[facility] the event this information is protected by the Federal Confidentiality of Alcohol and Drug Abuse Patient Records regulations: The Federal rules restrict any use of the information to criminally investigate or prosecute any alcohol or drug abuse patient.[facility] Reason for Visit (unrecogniz ed section and content) Reason Comments Left Hip Pain X 1.5 months Care Teams (unrecognized sec tion and content) Printing Gray Cloth Tender Relationship Specialty Start Date End Date Conrad Cisneros MD [address] [place] [address] PCP - General Internal Medicine 03/12/22 Printing Gray Cloth Tender Relationship Specialty Start Date End Date Conrad Cisneros MD [address] [place] [address] PCP - General Internal Medicine 03/12/22 INFORMATION [...] BE BASED ON THE PRIMARY CLINICAL RECORDS. [employer] [facility]. provides no warranty or guarantee of the accuracy or completeness of information in this document.
--- NOTE | 2024-01-29 06:53 | HP.PCM_ITS ---
HPI - General General Date of Service: 01/29/24 HPI Dilip HACKETT, is a 43 F who presents for diagnostic colonoscopy due to change in bowel habits previously. Patient states that has improved since the office visit. She is having normal stool?normal size/solid?only occasional diarrhea which may be when she takes her magnesium. office visit 11/26/23 HPI HPI: 43-year-old female presents due to change of bowel habits. Patient states that the end of September 2023 she was having normal stools but since then they have become more narrowed they are soft she has occasional diarrhea. Patient denies any nausea or vomiting. Patient does have some occasional left lower quadrant/groin discomfort this usually coincides with her cycle but can also get worse with exercise. Patient denies any change in her appetite. Patient states that in October her stools were not as narrow however more recently they have become a little more narrow. Patient has looser stools now does not have watery diarrhea patient's mom has been sick with diarrhea for about 4 weeks but did get antibiotics. Patient used to take magnesium did stop taking that. Patient has no family history of colon cancer. Patient has bowel movements daily denies any blood. Patient did have her last colonoscopy in 2016 which was negative. [facility] Medical History Abnormality of left breast on screening mammogram Alcohol use Non-smoker Home Medications cholecalciferol (vitamin D3) 25 mcg (1,000 unit) capsule 1,200 mcg PO DAILY 10/02/21 [History Last Taken Unknown] acetylcysteine 600 mg capsule (NAC) 1,800 mg PO DAILY 11/26/23 [History Last Taken Unknown] selenium 4 drp PO DAILY 11/26/23 [History Last Taken Unknown] magnesium 200 mg tablet 250 mg PO BID 01/24/24 [History Last Taken Unknown] vitamin A 5,000 unit/0.1 mL oral drops 10,000 unit PO DAILY 01/24/24 [History Last Taken Unknown] vitamin K2 180 mcg capsule 180 mcg PO DAILY 01/24/24 [History Last Taken Unknown] zinc glycinate 30 mg capsule 120 mg PO DAILY 01/24/24 [History Last Taken Unknown] Allergy/AdvReac Type Severity Reaction Status Date / Time No Known Allergies Allergy Verified 01/29/24 07:08 Family History Sister CVA (cerebral vascular accident) Father High serum cholesterol sulfate Surgical History (Updated 01/24/24 @ 11:28 by Iveth Adrian) Hx of colonoscopy S/P LASIK (laser assisted in situ keratomileusis) Social History number of children: 4 current occupational status: employed Smoking Status: Never smoker alcohol intake: current alcohol intake frequency: holidays/special occasions only substance use type: does not use what type of physical activity do you participate in: walking frequency: 1-2 times per week seatbelt use: always do you feel safe at home: Yes additional social history: [employer] Past Medical/Surgical History Planned Operation Planned Operative Procedure/s: CSCOPE S.O.S: No Previous Hospitalizations/Surgeries HX Hospitalizations: No HX of Surgeries: WISDOM TEETH SHEILA LASIK Any Problems With Anesthesia: No You/Your Family Experience Fever (Hyperthermia) With Anes: No Cholinesterase deficiency: No Cardiovascular Hx Chest Pain within Last 2 months: No Hx of Irregular Heartbeat and/or Afib: No Hx Heart Attack: No Hx Congestive Heart Failure: No Hx Rheumatic Fever: No Hx Hypertension: No Hx Internal Defibrillator: No Hx Pacemaker: No Hx Cardiac Catheterization: No Hx Cardiac Surgery/Stents/Etc.: No Hx Stress Test: No Hx Pain in Legs when Walking/Leg Cramps: No Respiratory Chronic Cough: No HX of Shortness of Breath: No Hoarseness: No Hx Chronic Obstructive Pulmonary Disease (COPD): No Hx Asthma: No Hx Emphysema: No Hx Sleep Apnea: No CPAP: No Hx Respiratory Tract Infection/Cold (presently): No Do You Snore Loudly (louder than talking or can be heard): No Do You Often Feel Tired/ Fatigued/ Sleepy Dring Daytime?: No Has Anyone Observed You Stop Breathing During Sleep?: No Result (for STOP score): Negative Hx Smoking: No Smoking Status: Never smoker Gastrointestinal Hx Gastrointestinal Disorders: No Hx Gastrointestinal Bleed: No Hx Ulcer: No Hx Hiatal Hernia: No Difficulty Chewing/Swallowing: No Special diet followed at home: No Hx Unplanned Weight Loss of 20#: No HX Unplanned Weight Gain of 20#: No Neurological Hx Seizures: No HX Syncope/Blackout Spells/Unconsciousness: No Hx Transient Ischemic Attacks (TIA): No Hx Multiple Sclerosis: No Hx Parkinson's Disease: No Hx Head/Neck Injury: No Hx Headaches: Yes Hx Back Injury/Pain: No Recent Onset of Speech Difficulty: No Restless Legs: No Does patient have nerve stimulator: No Blood Disorder Hx Leukemia: No Bleeding Tendencies: No Hx Deep Vein Thrombosis: No Hx High Cholesterol: No Blood Transmitted Disease: No Hx Hepatitis: No Hx Cirrhosis: No Hx Anemia: No Hx Blood Disorders: No Reproduction Is Patient Lactating: No Hx Hysterectomy: No Hx Tubal Ligation: No Are You Post Menopause: No Genitourinary Hx Renal Disease: No Musculoskeletal Hx Arthritis: No Hx Rheumatoid Arthritis: No Hx Gout: No Recent Onset of an Orthopedic Problem: No Endocrine Hx Diabetes: No Thyroid Disease: No Hx Steroid Therapy: No Psycho/Social Hx Substance Use: No Hx Alcohol Use: No Hx Anxiety: No Hx Depression: No Mental Illness: No Hx Dementia: No Miscellaneous Hx Cancer: No Recent Exposure to Contagious Disease: No Hx of C-Diff: No Any Loose Teeth: No Allergies No Known Allergies Allergy (Verified 01/29/24 07:08) Discharge Is Pt Admitted From a Intermediate, or a Senior Care: No After D/C, Where Do you Plan to Go: Return Home Physical Exam Const alert, oriented x3 and no apparent distress HEENT normocephalic and head/scalp atraumatic Resp normal respiratory effort Cardio regular rate GI soft to palpation and non-tender; Negative for non-distended Palpation: Negative for guarding Extremity no clubbing, cyanosis or edema Skin no rashes or lesions noted Neuro CN's II-XII intact bilaterally Psych mental status grossly normal Assessment & Plan Assessment/Plan (1) Change in bowel habits: (2) Diarrhea: Surgery Risks - Colonoscopy I discussed with the patient the risks of the procedure: Yes Risks Include but are not Limited To: Risks include but are not limited to: Bleeding, perforation requiring further surgery, inability to complete colonoscopy requiring barium enema.
[2024-01-29 07:16] LABS: Internal QC Validated? YES +Cl - CLEAR BKGD; Pregnancy, Urine Negative Negative
[2024-01-29] MEDS: Lactated Ringers 1,000 ML 15 ML IV (07:20)
--- NOTE | 2024-01-29 08:21 | OP.COLON_ITS ---
Patient Name: Fern Woodruff Procedure Date: 01/29/2024 7:27 AM Date of : 1980 Age: 43 Procedure: Colonoscopy Indications: Change in bowel habits, Diarrhea Providers: Adrienne Cardenas MD Referring MD: Jeni Cisneros Medicines: Monitored Anesthesia Care Patient Profile: This is a 43 year old female. Last Colonoscopy: none. The patient's first colonoscopy is today. Complications: No immediate complications. Procedure: Pre-Anesthesia Assessment: - Prior to the procedure, a History and Physical was performed, and patient medications and allergies were reviewed. The patient's tolerance of previous anesthesia was also reviewed. The risks and benefits of the procedure and the sedation options and risks were discussed with the patient. All questions were answered, and informed consent was obtained. Prior Anticoagulants: The patient has taken no anticoagulant or antiplatelet agents. ASA Grade Assessment: Per anesthesia. After reviewing the risks and benefits, the patient was deemed in satisfactory condition to undergo the procedure. After I obtained informed consent, the scope was passed under direct vision. Throughout the procedure, the patient's blood pressure, pulse, and oxygen saturations were monitored continuously. The pediatric colonoscope was introduced through the anus and advanced to the cecum, identified by the appendiceal orifice, ileocecal valve and palpation. The colonoscopy was performed without difficulty. The patient tolerated the procedure well. The quality of the bowel preparation was good. Scope In: 7:58:45 AM Scope Withdrawal Time 0 hours 6 minutes 18 seconds Scope Out: 8:13:47 AM Total Procedure Duration Time 0 hours 15 minutes 2 seconds Findings: The perianal and digital rectal examinations were normal. Scattered small-mouthed diverticula were found in the descending colon, transverse colon and ascending colon. The exam was otherwise without abnormality on direct and retroflexion views. Impression: - Diverticulosis in the descending colon, in the transverse colon and in the ascending colon. - The examination was otherwise normal on direct and retroflexion views. - No specimens collected. Recommendation: - Discharge patient to home. - High fiber diet. - Continue present medications. - Repeat colonoscopy in 10 years for screening purposes. Procedure Code(s): --- Professional --- 87735, Colonoscopy, flexible; diagnostic, including collection of specimen(s) by brushing or washing, when performed (separate procedure) Diagnosis Code(s): --- Professional --- R19.4, Change in bowel habit R19.7, Diarrhea, unspecified K57.30, Diverticulosis of large intestine without perforation or abscess without bleeding CPT copyright 2021 [employer]. All rights reserved. The codes documented in this report are preliminary and upon machine bender review may be revised to meet current compliance requirements. MD Adrienne Appiah MD 01/29/2024 8:20:54 AM This report has been signed electronically. Number of Addenda: 0 Note Initiated On: 01/29/2024 7:27 AM
--- NOTE | 2024-01-29 08:21 | OP.CCLET_ITS ---
01/29/2024 Jeni Cisneros [address] [place] [address] Re : Colonoscopy procedure for Fern Woodruff Dear Dr. Cisneros This procedure was performed on Monday, January 29, 2024. My impressions and recommendations are as follows: Impressions : - Diverticulosis in the descending colon, in the transverse colon and in the ascending colon. - The examination was otherwise normal on direct and retroflexion views. - No specimens collected. Recommendations : - Discharge patient to home. - High fiber diet. - Continue present medications. - Repeat colonoscopy in 10 years for screening purposes. My findings are described in the full procedure note, which is enclosed. If I can be of further assistance, please feel free to contact me at Doctor phone number(s): , Work: . Sincerely, MD Adrienne Appiah MD 01/29/2024 8:20:54 AM This report has been signed electronically.
== END 2024-01-29 09:08 | disposition home or self-care (01) ==
LOC: EN 06:41 → AC 06:42
PROVIDERS: Anesthesiology; PCP Internal Medicine; Referring Provider Internal Medicine; Visit Provider Surgery
PROC: 0DJD8ZZ Inspection of Lower Intestinal Tract, Via Natural or Artificial Opening Endoscopic (ICD-10-PCS; CPT 45378; principal; 2024-01-29 07:55)
DX: R19.7 Diarrhea, unspecified (principal); K57.30 Diverticulosis of large intestine without perforation or abscess without bleeding; R19.4 Change in bowel habit
CPT/HCPCS: 45378; 81025; J7120; J2405

== ENCOUNTER → 2024-05-29 | Outpatient (CLI) | payer OTHER, SELFPAY ==
[2024-05-29 10:19] LABS: Erythrocyte Sedimentation Rate 4 mm/hr (0-30)
[2024-05-29 10:20] LABS: Absolute Lymphocyte Count 1.96 X10^3/uL (0.83-4.51); Basophil# 0.04 X10^3/uL; Basophil% 0.7 % (0-1); Eosinophil# 0.14 X10^3/uL; Eosinophils% 2.5 % (0-5); Hematocrit 41.4 % (37-47); Hemoglobin 13.6 g/dL (12.0-15.0); Lymphocyte # 1.96 X10^3/ul (0.83-4.51); Mean Corp Hgb Conc 32.9 g/dL (32-36); Mean Corpuscular Hgb 26.3 pg (27.0-32.0); Mean Corpuscular Volume 80.1 fL (81-99); Mean Platelet Vol. 10.9 fl (6.2-12.0); Monocyte# 0.44 X10^3/uL; Monocyte% 7.9 % (0-10); NRBC Flagged by Analyzer 0 % (0-5); Neutrophil # 3.01 X10^3/uL (2.7-7.7); Neutrophil % 53.7 % (47-70); Platelet Count 291 K/mm3 (150-450); RBC Distribution Width CV 12.7 % (11.6-14.6); RBC Distribution Width SD 36.5 fl (35.1-43.9); Red Blood Count 5.17 M/mm3 (4.2-5.4); White Blood Count 5.6 K/mm3 (4.4-11.0)
[2024-05-29 11:07] LABS: ALB/GLOB Ratio 1.1 RATIO (0.9-2.4); AST(SGOT) 15 U/L (15-37); Alanine Aminotransfer ALT/SGPT 19 U/L (13-56); Albumin, Serum 3.9 g/dL (3.2-5.0); Alkaline Phosphatase 74 U/L (45-117); Anion Gap 5 (5-15); BUN 9 mg/dL (7-18); BUN/Creat Ratio 10.8 RATIO (10-20); CRP < 2.90 mg/L (0.0-3.0); Calcium,Total 9.3 mg/dL (8.5-10.1); Chloride 105 mmol/L (98-107); Creatinine, Serum 0.83 mg/dL (0.55-1.02); EST Glomerular Filtration Rate 79 mL/min (>60); Est Glom Filt Rate - Afr Amer 95 mL/min (>60); Free T3 2.9 pg/mL (2.18-3.98); Globulin 3.7 g/dL (2.2-4.2); Glucose 92 mg/dL (74-106); LDH 161 U/L (84-246); Potassium 3.7 mmol/L (3.5-5.1); Protein, Total 7.6 g/dL (6.4-8.2); Sodium Level 136 mmol/L (136-145); T3 Uptake 33 % (30-39); T4 Free Direct 0.91 ng/dL (0.76-1.46); Thyroid Stim Hormone (TSH) 3.51 uIU/mL (0.358-3.74)
[2024-05-29 11:12] LABS: T3 Total - Triiodothyronine 1.14 ng/mL (0.6-1.81)
[2024-05-30 05:09] LABS: HOMOCYSTEINE 6.7 umol/L (0.0-14.5)
== END | disposition home or self-care (01) ==
LOC: MTLAB 08:53
PROVIDERS: PCP Internal Medicine; Referring Provider Naturopath; Visit Provider Naturopath
DX: E56.9 Vitamin deficiency, unspecified (principal); E61.9 Deficiency of nutrient element, unspecified; E03.9 Hypothyroidism, unspecified; R19.5 Other fecal abnormalities; R10.9 Unspecified abdominal pain; R15.2 Fecal urgency
CPT/HCPCS: 36415; 80053; 82525; 83090; 83615; 84305; 84439; 84443; 84479; 84480; 84481; 84482; 85025; 85652; 86140

== ENCOUNTER → 2024-12-23 | Outpatient (CLI) | payer OTHER, SELFPAY ==
[2024-12-28 10:07] LABS: HPV APTIMA, High Risk Negative (Negative)
== END | disposition home or self-care (01) ==
PROVIDERS: PCP Internal Medicine; Referring Provider Obstetrics & Gynecology; Visit Provider Obstetrics & Gynecology
DX: Z12.4 Encounter for screening for malignant neoplasm of cervix (principal)
CPT/HCPCS: 87624; 88175; G0145

== ENCOUNTER → 2024-12-29 | Outpatient (CLI) | payer OTHER, SELFPAY ==
[2024-12-29 10:23] LABS: Erythrocyte Sedimentation Rate 5 mm/hr (0-30)
[2024-12-29 10:26] LABS: Absolute Lymphocyte Count 1.94 X10^3/uL (0.83-4.51); Absolute Neutrophil Count 3.7 X10^3/uL (2.0-7.7); Basophil# 0.05 X10^3/uL; Basophil% 0.8 % (0-1); Eosinophil# 0.14 X10^3/uL; Eosinophils% 2.2 % (0-5); Hematocrit 39.9 % (37-47); Hemoglobin 13.5 g/dL (12.0-15.0); Lymphocyte # 1.94 X10^3/ul (0.83-4.51); Mean Corp Hgb Conc 33.8 g/dL (32-36); Mean Corpuscular Volume 79.8 fL (81-99); Monocyte% 6.4 % (0-10); NRBC Flagged by Analyzer 0 % (0-5); Neutrophil # 3.71 X10^3/uL (2.7-7.7); Neutrophil % 59.3 % (47-70); Platelet Count 287 K/mm3 (150-450); RBC Distribution Width CV 12.9 % (11.6-14.6); RBC Distribution Width SD 36.8 fl (35.1-43.9); White Blood Count 6.3 K/mm3 (4.4-11.0)
[2024-12-29 13:04] LABS: ALB/GLOB Ratio 1.1 RATIO (0.9-2.4); AST(SGOT) 13 U/L (15-37); Alanine Aminotransfer ALT/SGPT 22 U/L (13-56); Albumin, Serum 3.5 g/dL (3.2-5.0); Alkaline Phosphatase 67 U/L (45-117); Anion Gap 6 (5-15); BUN 10 mg/dL (7-18); BUN/Creat Ratio 12.7 RATIO (10-20); Calcium,Total 8.8 mg/dL (8.5-10.1); Chloride 106 mmol/L (98-107); Cholesterol 216 mg/dL (200); Creatinine, Serum 0.78 mg/dL (0.55-1.02); EST Glomerular Filtration Rate 84 mL/min (>60); Est Glom Filt Rate - Afr Amer 102 mL/min (>60); Ferritin 25 ng/mL (8-252); Globulin 3.3 g/dL (2.2-4.2); Glucose 93 mg/dL (74-106); High Density Lipoprotein 57 mg/dL; Iron 79 ug/dL (50-170); Iron Binding Capacity,Total 331 ug/dL (250-450); PERCENT IRON SATURATION 23.9 % (15.0-55.0); Potassium 3.7 mmol/L (3.5-5.1); Protein, Total 6.8 g/dL (6.4-8.2); Sodium Level 137 mmol/L (136-145); T4 Free Direct 0.98 ng/dL (0.76-1.46); Triglycerides 156 mg/dL; Very Low Density Lipoprotein 31 mg/dL (5-40)
[2024-12-29 13:51] LABS: Vitamin D,25 Hydroxy 36.4 ng/mL
[2024-12-29 14:13] LABS: Hemoglobin A1c 5.2 % (3.8-5.6)
[2024-12-30 02:54] LABS: T4 Total, Thyroxin 7.8 ug/dL (4.8-13.9)
[2024-12-30 13:07] LABS: CRP, High Sensitivity 1.66 mg/L (0.00-3.00); HOMOCYSTEINE 7.3 umol/L (0.0-14.5)
[2025-01-04 04:06] LABS: Copper, Serum or Plasma 135 ug/dL (80-158); GGTP 9 IU/L (0-60); Insulin Level 14.3 uIU/mL (2.6-24.9); T3 Reverse 19.4 ng/dL (9.2-24.1); T3UP 30 % (24-39); Thyroglobulin Antibody < 1.0 IU/mL (0.0-0.9); Thyroid Peroxidase AB < 9 IU/mL (0-34)
== END | disposition home or self-care (01) ==
LOC: MTLAB 08:50
PROVIDERS: PCP Internal Medicine; Referring Provider Naturopath; Visit Provider Naturopath
DX: E03.9 Hypothyroidism, unspecified (principal); E61.9 Deficiency of nutrient element, unspecified; E56.9 Vitamin deficiency, unspecified; R19.5 Other fecal abnormalities; L65.9 Nonscarring hair loss, unspecified; R76.0 Raised antibody titer; R63.5 Abnormal weight gain
CPT/HCPCS: 36415; 80053; 80061; 82306; 82525; 82728; 82977; 83036; 83090; 83525; 83540; 83550; 84436; 84439; 84443; 84479; 84480; 84481; 84482; 85025; 85652; 86141; 86376; 86800

== ENCOUNTER → 2025-07-01 | Outpatient (CLI) | payer OTHER, SELFPAY ==
--- NOTE | 2025-07-01 12:57 | BI_ITS ---
EXAM: DIAG MAMM W/CAD, BILAT 07/01/2025 CLINICAL HISTORY: F, Age 45 y/o , LEFT BREAST MASS TECHNIQUE: DIAG MAMM W/CAD, BILAT. COMPARISON: Prior exam(s) dated December 09, 2023.. FINDINGS: TISSUE DENSITY: The breasts are extremely dense, which lowers the sensitivity of mammography. Bilateral Breast Mammographic Findings: Once again, there is evidence of a 1.2 cm 1.5 cm well-defined nodule in the anterior upper lateral aspect of the left breast. This was demonstrated to be a cyst on prior study. Stable small benign-appearing bilateral axillary lymph nodes. BI/DIAG MAMM W/CAD, BILAT IMPRESSION: Stable examination. OVERALL FINAL ASSESSMENT BI-RADS 2: BENIGN RECOMMENDATION: Routine annual follow-up in 1 Year A letter with findings and recommendations will be mailed to the patient. Reading Location: [place] [id number]
--- NOTE | 2025-07-01 12:57 | US_ITS ---
PROCEDURE: BREAST LIMITED UNILATERAL N/A REASON FOR EXAM: F, Age 45 y/o , LEFT BREAST MASS Abnormal screening mammogram. Palpable left breast lump. COMPARISON: Prior mammogram done earlier in the day.. TECHNIQUE: BREAST LIMITED UNILATERAL FINDINGS: There is evidence of a 1.2 cm x 1 cm x 1 cm cyst with low-level debris along the dependent portion at the 1 o'clock position of the breast at 1 cm from the nipple. US/Breast Limited Unilateral IMPRESSION: 1.2 cm 1 cm 1 cm cyst with small amount of debris in the dependent portion of t he cyst at the 1 o'clock position of the breast at 1 cm from the nipple. BI-RADS 2: BENIGN RECOMMENDATION: Routine annual follow-up in 1 Year Reading Location: [place] [id number]
== END | disposition home or self-care (01) ==
PROVIDERS: PCP Internal Medicine; Referring Provider Nurse Practitioner Women's Health; Visit Provider Nurse Practitioner Women's Health
DX: N63.20 Unspecified lump in the left breast, unspecified quadrant (principal)
CPT/HCPCS: 76642; 77062; 77066; G0279